=== PATIENT | female | born 1945 | race Caucasian/White ===

== ENCOUNTER 2018-10-20 11:35 | Outpatient (REF) | payer OTHER, SELFPAY ==
[2018-10-20 21:28] LABS: HCT 38.6 % (36.0-46.0); HGB 12.1 g/dL (12.0-15.5); Mean Corp. HGB Concentration 31.3 g/dL (32.0-36.0); Mean Corpuscular Hemoglobin 29.7 pg (27.0-33.0); Mean Corpuscular Volume 94.8 fL (80-95); Mean Platelet Volume 10.1 fL (8.0-11.0); Platelet Count 345 x1000/uL (130-400); RBC 4.07 m/cumm (4.00-5.20); RBC Distribution Width 16.3 % (11.7-14.6); White Blood Cell Count 6.21 k/cumm (4.4-10.8)
[2018-10-20 21:43] LABS: BUN 32 mg/dL (7-18); CREATININE 1.19 mg/dL (0.55-1.02); Chloride 105 mmol/L (98-107); Estimated GFR 44.46 (mL/min/1.73m2); Glucose 112 mg/dL (70-100); Iron 52 ug/dL (50-175); Potassium 4.6 mmol/L (3.5-5.1); Sodium 141 mmol/L (136-145); Total Iron Binding Capacity 293 ug/dL (250-450); Transferrin Sat 18 % (15-50)
== END 2018-10-20 11:55 ==
LOC: NCHCN 11:35
PROVIDERS: PCP Family Medicine; Visit Provider Family Medicine
DX: D50.9 Iron deficiency anemia, unspecified (principal); I10 Essential (primary) hypertension; E66.9 Obesity, unspecified
CPT/HCPCS: 80048; 85027; 83540; 83550

== ENCOUNTER 2019-11-17 12:46 | Outpatient (REF) | payer OTHER, SELFPAY ==
[2019-11-17 21:09] LABS: Anion Gap 8.2 mmol/L (3-11); BUN 25 mg/dL (7-18); CO2 25.8 mmol/L (21.0-32.0); CREATININE 1.18 mg/dL (0.55-1.02); Calcium 9.1 mg/dL (8.5-10.1); Chloride 105 mmol/L (98-107); Estimated GFR 44.77 (mL/min/1.73m2); Glucose 109 mg/dL (74-106); Potassium 4.5 mmol/L (3.5-5.1); Sodium 139 mmol/L (136-145)
[2019-11-17 21:32] LABS: Hemoglobin A1C 6.8 % (3.8-5.6)
== END 2019-11-17 13:06 ==
LOC: NCHCN 12:46
PROVIDERS: PCP Family Medicine; Visit Provider Family Medicine
DX: I10 Essential (primary) hypertension (principal); E11.9 Type 2 diabetes mellitus without complications
CPT/HCPCS: 80048; 83036

== ENCOUNTER 2020-04-16 15:25 | Outpatient (REF) | payer OTHER, SELFPAY ==
[2020-04-16 21:08] LABS: HCT 37.9 % (36.0-46.0); HGB 12.2 g/dL (11.2-15.7); MCH 31.4 pg (27.0-33.0); MCHC 32.2 % (32.0-36.0); MCV 97.4 fL (80-95); Platelet Count 353 10^3/uL (130-400); RBC 3.89 10^6/uL (3.93-5.22); RDW 14.2 % (11.7-14.6); RDW-SD 51.1 fL; WBC 7.69 10^3/uL (4.4-10.8)
[2020-04-16 21:37] LABS: Anion Gap 8.3 mmol/L (3-11); BUN 24 mg/dL (7-18); CO2 27.7 mmol/L (21.0-32.0); CREATININE 0.96 mg/dL (0.55-1.02); Calcium 9.1 mg/dL (8.5-10.1); Chloride 107 mmol/L (98-107); Estimated GFR 56.66 (mL/min/1.73m2); Ferritin 84 ng/mL (8-252); Glucose 117 mg/dL (74-106); Potassium 4.4 mmol/L (3.5-5.1); Sodium 143 mmol/L (136-145)
== END 2020-04-16 15:45 ==
LOC: NCHCN 15:25
PROVIDERS: PCP Family Medicine; Visit Provider Family Medicine
DX: E61.1 Iron deficiency (principal); D64.9 Anemia, unspecified; N18.9 Chronic kidney disease, unspecified
CPT/HCPCS: 80048; 85027; 82728

== ENCOUNTER 2020-10-23 14:25 | Outpatient (REF) | payer OTHER, SELFPAY ==
[2020-10-23 22:36] LABS: BUN 23 mg/dL (7-18); Estimated GFR 54.05 (mL/min/1.73m2)
== END 2020-10-23 14:26 | disposition home or self-care (01) ==
LOC: NCHCN 14:25
PROVIDERS: PCP Family Medicine; Visit Provider Family Medicine
DX: Z01.818 Encounter for other preprocedural examination (principal)
CPT/HCPCS: 84520; 82565

== ENCOUNTER 2021-06-03 16:32 | Outpatient (REF) | payer OTHER, SELFPAY ==
[2021-06-03 22:29] LABS: Calculated LDL 70 mg/dL (<100); Cholesterol 137 mg/dL (<200); HDL Cholesterol 44 mg/dL (40-60); Triglyceride 116 mg/dL (<150)
[2021-06-03 22:32] LABS: Hemoglobin A1C 5.5 % (<5.7)
== END 2021-06-03 16:33 | disposition home or self-care (01) ==
LOC: NCHCN 16:32
PROVIDERS: PCP Family Medicine; Visit Provider Family Medicine
DX: E11.9 Type 2 diabetes mellitus without complications (principal); E78.5 Hyperlipidemia, unspecified
CPT/HCPCS: 80061; 83036

== ENCOUNTER 2021-08-13 14:59 | Outpatient (REF) | payer MEDICARE, SELFPAY ==
--- OUTSIDE RECORDS SUMMARY | 2021-08-13 15:01 | XMS_ITS | CCD ---
:1945 Author Care Team Providers Name Role Phone LAWLER Attending Physician Unavailable Vital Signs Unknown or Not Available. Allergies Allergy Code Allergy Type Reaction Status SULFA (sulfonamide) 0 Drug allergy Nausea; Vomiting Acti ve LEVOFLOXACIN 33645 Drug allergy NAUSEA/VOMITING,REBEKAH Active RRHEA,ABDOMINAL PAIN Procedures Unknown or Not Available. History of Immunizations Unknown or Not Available. Problems Unknown or Not Available. Results COMPREHENSIVE METABOLIC PANEL (CMP) - Co llect Date/Time: 07/02/2021 12:06 Test Name Code Test Result Test Units Test Ref Range GLUCOSE 2345-7 117 mg/dL L=70 H=11 6 BUN 3094-0 23 mg/dL L=6 H=25 CREATININE 2160-0 1.02 mg/dL L=0.51 H=0.95 SODIUM SERUM 2951-2 140 mmol/L L=136 H=14 5 POTASSIUM SERUM 2823-3 5.3 mmol/L L=3.4 H =5.2 CHLORIDE SERUM 2075-0 108 mmol/L L=96 H= 110 CARBON DIOXIDE (CO2) 2028-9 25 mmol/L L=22 H=34 ANION GAP 44824-4 7.1 mmol/L CALCIUM SERUM 85514-0 9.2 mg/dL L=8.2 H=10.2 BILIRUBIN TOTAL 1975-2 0.3 mg/dL L=0.0 H =1.3 ALK. PHOS. 6768-6 66 U/L L=46 H=11 6 SGOT (AST) 1920-8 29 U/L L=15 H=37 SGPT (ALT) 1742-6 34 U/L L=12 H=78 TOTAL PROTEIN 2885-2 7.5 gm/dL L=6.0 H=8 .0 ALBUMIN 1751-7 3.3 gm/dL L=3.4 H=5. 0 AGE 76 years eGFR (non-Afr.Amer.) 71132-5 53 mL/min eGFR (Afr-[place]) 90503-9 64 mL/min HEMOGRAM + PLATELET WO DIFF - Collect Da te/Time: 07/02/2021 12:06 Test Name Code Test Result Test Units Test Ref Range WBC 6690-2 6.60 th/cmm L=5.00 H=10.00 NRBC % 66247-6 0.0 % L=0.0 H=0. 0 NRBC abs count 11914-0 0.0 mil/cmm L=0.0 H= 0.0 RBC 789-8 3.43 mil/cmm L=3.90 H=5.40 HEMOGLOBIN 718-7 10.8 gm/dL L=12.0 H=16.0 HEMATOCRIT 4544-3 34 % L=37 H=47 MCV 787-2 99 fL L=82 H=92 MCH 785-6 31.5 pg L=27.0 H=31.0 MCHC 786-4 31.7 % L=32.0 H=36.0 RDW-SD 788-0 55.6 fL L=39.0 H=49.0 PLATELET COUNT 777-3 393 th/cmm L=150 H= 450 Active Medications Unknown or Not Available. Medications Administered During Visit Unknown or Not Available. Encounters Encounter Diagnosis Diagnosis Code Start Date Myasthenia gravis without (acute) exacerbation G7000 07/02/2021 Social History Smoking Status Code Start Date End Date Never smoker [id number] Patient Decision Aids Unknown or Not Available. Discharge Instructions You were admitted to [facility] on 07/02/2021 11:53 with a principal diagnosis of Myasthenia gravis without ( acute) exacerbation You had the following tests done: COMPREHENSIVE METABOLIC PANEL (CMP) HEMOGRAM + PLATELET WO DI FF You were discharged from [facility] on 07/02/2021 11:53 Should you have any questions prior to d ischarge, please contact a member of your healthcare team. If you have left the ho spital and have any questions, please contact your primary care physician. Chief Complaint and Reason For Visit Unknown or Not Available. Function Status Unknown or Not Available. Plan of Care Unknown or Not Available. Referral/Transition of Care Unknown or Not Available.
--- OUTSIDE RECORDS SUMMARY | 2021-08-13 15:01 | XMS_ITS | CCD ---
:1945 Author Care Team Providers Name Role Phone MD MARQUES Attending Physician Unavailable MD CASIMIRO Er Physician 1 Unavailable Vital Signs Unknown or Not Available. Allergies Allergy Code Allergy Type Reaction Status SULFA (sulfonamide) 0 Drug allergy Nausea; Vomiting Acti ve LEVOFLOXACIN 51907 Drug allergy NAUSEA/VOMITING,REBEKAH Active RRHEA,ABDOMINAL PAIN Procedures Unknown or Not Available. History of Immunizations Unknown or Not Available. Problems Unknown or Not Available. Results BNP (PRO-B NATRIURETIC PEPTIDE) - [facility] t Date/Time: 12/21/2020 16:32 Test Name Code Test Result Test Units Test Ref Range NT-proBNP 45012-7 185.0 pg/mL L=0.0 H=12 5 COMPREHENSIVE METABOLIC PANEL (CMP) - Ok llect Date/Time: 12/21/2020 16:32 Test Name Code Test Result Test Units Test Ref Range GLUCOSE 2345-7 121 mg/dL L=70 H=11 6 BUN 3094-0 17 mg/dL L=6 H=25 CREATININE 2160-0 1.03 mg/dL L=0.51 H=0.95 SODIUM SERUM 2951-2 142 mmol/L L=136 H=14 5 POTASSIUM SERUM 2823-3 3.7 mmol/L L=3.4 H =5.2 CHLORIDE SERUM 2075-0 107 mmol/L L=96 H= 110 CARBON DIOXIDE (CO2) 2028-9 24 mmol/L L=22 H=34 ANION GAP 04239-5 10.9 mmol/L CALCIUM SERUM 45286-4 8.8 mg/dL L=8.2 H=10.2 BILIRUBIN TOTAL 1975-2 0.3 mg/dL L=0.0 H =1.3 ALK. PHOS. 6768-6 65 U/L L=46 H=11 6 SGOT (AST) 1920-8 29 U/L L=15 H=37 SGPT (ALT) 1742-6 41 U/L L=12 H=78 TOTAL PROTEIN 2885-2 6.9 gm/dL L=6.0 H=8 .0 ALBUMIN 1751-7 3.4 gm/dL L=3.4 H=5. 0 AGE 75 years eGFR (non-Afr.Amer.) 80600-3 52 mL/min eGFR (Afr-[place]) 17016-2 63 mL/min GLUCOSE FINGER/HEEL CAPILLARY - Collect Date/Time: 12/22/2020 00:52 Test Name Code Test Result Test Units Test Ref Range GLUCOSE CAP 124 mg/dL L=70 H=11 6 TROPONIN-I ADM. - Collect Date/Time: 06/2021 16:32 Test Name Code Test Result Test Units Test Ref Range TROPONIN-I 04009-2 <0.017 ng/mL L=0.000 H=0. 060 CBC W/ DIFFERENTIAL - Collect Date/Time: 12/21/2020 16:32 Test Name Code Test Result Test Units Test Ref Range WBC 6690-2 9.40 th/cmm L=5.00 H=10.00 NEUT % 63.6 % L=40.0 H=80.0 LYMPH % 26.5 % L=10.0 H=50.0 MONO % 17679-8 5.6 % L=2.0 H=12.0 EOS % 3.3 % L=0.0 H=8. 0 BASO % 0.6 % L=0.0 H=3. 0 IG % 2514-8 0.4 % L=0.0 H=1. 1 NRBC % 14382-6 0.0 % L=0.0 H=0. 0 NEUT abs count 751-8 6.0 th/cmm L=1.6 H= 8.4 LYMPH abs count 731-0 2.5 th/cmm L=1.5 H =4.0 MONO abs count 742-7 0.5 th/cmm L=0.2 H= 1.0 EOS abs count 711-2 0.3 th/cmm L=0.0 H=0 .5 BASO abs count 704-7 0.1 th/cmm L=0.0 H= 0.2 IG abs count 20055-5 0.0 th/cmm L=0.0 H=0. 1 NRBC abs count 99470-7 0.0 mil/cmm L=0.0 H= 0.0 RBC 789-8 3.99 mil/cmm L=3.90 H=5.40 HEMOGLOBIN 718-7 12.6 gm/dL L=12.0 H=16.0 HEMATOCRIT 4544-3 39 % L=37 H=47 MCV 787-2 99 fL L=82 H=92 MCH 785-6 31.6 pg L=27.0 H=31.0 MCHC 786-4 32.0 % L=32.0 H=36.0 RDW-SD 788-0 55.8 fL L=39.0 H=49.0 PLATELET COUNT 777-3 354 th/cmm L=150 H= 450 PT PROTHROMBIN TIME - Collect Date/Time: 12/21/2020 16:32 Test Name Code Test Result Test Units Test Ref Range PROTIME 5902-2 9.6 seconds L=9.3 H=11 .4 INR 19105-8 0.94 L=2.00 H=3. 00 PTT PARTIAL THROMBOPLASTIN TIME - Colle t Date/Time: 12/21/2020 16:32 Test Name Code Test Result Test Units Test Ref Range PTT 11013-2 22 seconds L=24 H=32 Active Medications Unknown or Not Available. Medications Administered During Visit Unknown or Not Available. Encounters Encounter Diagnosis Diagnosis Code Start Date Myasthenia gravis with (acute) exacerbation G7001 12/21/2020 Social History Smoking Status Code Start Date End Date Never smoker [id number] Patient Decision Aids Unknown or Not Available. Discharge Instructions You were admitted to [facility] on 12/21/2020 18:19 with a principal diagnosis of Myasthenia gravis with (acu te) exacerbation You had the following tests done: GLUCOSE FINGER/HEEL CAPILLARY BNP (PRO-B NATRIURETIC PEPTIDE) CBC W/ DIFFERENTIAL COMPREHENSIVE METABOLIC PANEL (CMP) PT PROTHROMBIN TIME PTT PARTIAL THROMBOPLASTIN TIME TROPONIN-I ADM. You were discharged from [facility] on 12/22/2020 01:59 Should you have any questions prior to d ischarge, please contact a member of your healthcare team. If you have left the ho spital and have any questions, please contact your primary care physician. Chief Complaint and Reason For Visit Chief Complaint Date of Onset SOB Function Status Unknown or Not Available. Plan of Care Unknown or Not Available. Referral/Transition of Care Unknown or Not Available.
--- OUTSIDE RECORDS SUMMARY | 2021-08-13 15:01 | XMS_ITS | CCD ---
:1945 Author Care Team Providers Name Role Phone LAWLER Attending Physician Unavailable Vital Signs Unknown or Not Available. Allergies Allergy Code Allergy Type Reaction Status SULFA (sulfonamide) 0 Drug allergy Nausea; Vomiting Acti ve LEVOFLOXACIN 75117 Drug allergy NAUSEA/VOMITING,REBEKAH Active RRHEA,ABDOMINAL PAIN Procedures Unknown or Not Available. History of Immunizations Unknown or Not Available. Problems Unknown or Not Available. Results COMPREHENSIVE METABOLIC PANEL (CMP) - Co llect Date/Time: 07/31/2021 12:30 Test Name Code Test Result Test Units Test Ref Range GLUCOSE 2345-7 119 mg/dL L=70 H=11 6 BUN 3094-0 30 mg/dL L=6 H=25 CREATININE 2160-0 1.04 mg/dL L=0.51 H=0.95 SODIUM SERUM 2951-2 140 mmol/L L=136 H=14 5 POTASSIUM SERUM 2823-3 5.5 mmol/L L=3.4 H =5.2 CHLORIDE SERUM 2075-0 108 mmol/L L=96 H= 110 CARBON DIOXIDE (CO2) 2028-9 24 mmol/L L=22 H=34 ANION GAP 57940-8 8.0 mmol/L CALCIUM SERUM 36443-9 9.3 mg/dL L=8.2 H=10.2 BILIRUBIN TOTAL 1975-2 0.3 mg/dL L=0.0 H =1.3 ALK. PHOS. 6768-6 74 U/L L=46 H=11 6 SGOT (AST) 1920-8 26 U/L L=15 H=37 SGPT (ALT) 1742-6 37 U/L L=12 H=78 TOTAL PROTEIN 2885-2 8.0 gm/dL L=6.0 H=8 .0 ALBUMIN 1751-7 3.5 gm/dL L=3.4 H=5. 0 AGE 76 years eGFR (non-Afr.Amer.) 70613-9 52 mL/min eGFR (Afr-Citizen Of [place]) 40452-9 62 mL/min CBC W/ DIFFERENTIAL* - Collect Date/Time : 07/31/2021 12:30 Test Name Code Test Result Test Units Test Ref Range WBC 6690-2 6.44 th/cmm L=5.00 H=10.00 NEUT % 68.4 % L=40.0 H=80.0 LYMPH % 24.2 % L=10.0 H=50.0 MONO % 80663-2 5.4 % L=2.0 H=12.0 EOS % 1.1 % L=0.0 H=8. 0 BASO % 0.6 % L=0.0 H=3. 0 IG % 2514-8 0.3 % L=0.0 H=1. 1 NRBC % 72914-0 0.0 % L=0.0 H=0. 0 NEUT abs count 751-8 4.4 th/cmm L=1.6 H= 8.4 LYMPH abs count 731-0 1.6 th/cmm L=1.5 H =4.0 MONO abs count 742-7 0.4 th/cmm L=0.2 H= 1.0 EOS abs count 711-2 0.1 th/cmm L=0.0 H=0 .5 BASO abs count 704-7 0.0 th/cmm L=0.0 H= 0.2 IG abs count 75626-4 0.0 th/cmm L=0.0 H=0. 1 NRBC abs count 48743-7 0.0 mil/cmm L=0.0 H= 0.0 RBC 789-8 3.54 mil/cmm L=3.90 H=5.40 HEMOGLOBIN 718-7 10.9 gm/dL L=12.0 H=16.0 HEMATOCRIT 4544-3 35 % L=37 H=47 MCV 787-2 99 fL L=82 H=92 MCH 785-6 30.8 pg L=27.0 H=31.0 MCHC 786-4 31.1 % L=32.0 H=36.0 RDW-SD 788-0 55.4 fL L=39.0 H=49.0 PLATELET COUNT 777-3 418 th/cmm L=150 H= 450 Active Medications Unknown or Not Available. Medications Administered During Visit Unknown or Not Available. Encounters Encounter Diagnosis Diagnosis Code Start Date Myasthenia gravis without (acute) exacerbation G7000 07/31/2021 Social History Smoking Status Code Start Date End Date Never smoker [id number] Patient Decision Aids Unknown or Not Available. Discharge Instructions You were admitted to [facility] on 07/31/2021 11:37 with a principal diagnosis of Myasthenia gravis without ( acute) exacerbation You had the following tests done: CBC W/ DIFFERENTIAL* COMPREHENSIVE METABOLIC PANEL (CMP) You were discharged from [facility] on 07/31/2021 11:37 Should you have any questions prior to [...]
== END 2021-08-13 15:00 | disposition home or self-care (01) ==
LOC: NCHCN 14:59
PROVIDERS: PCP Family Medicine; Visit Provider Registered Nurse
DX: R10.2 Pelvic and perineal pain (principal)
CPT/HCPCS: 87480; 87510; 87660

== ENCOUNTER 2021-11-18 22:52 | Outpatient (REF) | payer MEDICARE, SELFPAY ==
[2021-11-18 21:41] LABS: COMMENT (LAB VIEW ONLY) 94.52 mg/dL; Microalb ug/mg Crea 7.9 ug/mg Cr
== END 2021-11-18 22:53 | disposition home or self-care (01) ==
LOC: NCHCN 22:52
PROVIDERS: PCP Family Medicine; Visit Provider Family Medicine
DX: E11.9 Type 2 diabetes mellitus without complications (principal)
CPT/HCPCS: 82043; 82570

== ENCOUNTER 2022-11-17 17:47 | Outpatient (REF) | payer MEDICARE, SELFPAY ==
[2022-11-17 14:40] LABS: HCT 29.8 % (36.0-46.0); HGB 9.1 g/dL (11.2-15.7); MCH 28.7 pg (27.0-33.0); MCHC 30.5 % (32.0-36.0); MCV 94 fL (80-95); MPV 9.7 fL (8.0-11.0); Platelet Count 338 10^3/uL (130-400); RBC 3.17 10^6/uL (3.93-5.22); RDW 16.4 % (11.7-14.6); RDW-SD 57.1 fL; WBC 5.17 10^3/uL (4.4-10.8)
[2022-11-17 15:08] LABS: Anion Gap 5.2 mmol/L (3-11); BUN 23 mg/dL (7-18); CO2 24.8 mmol/L (21.0-32.0); CREATININE 1.2 mg/dL (0.55-1.02); Calcium 8.8 mg/dL (8.5-10.1); Calculated LDL 65 mg/dL (<100); Chloride 110 mmol/L (98-107); Cholesterol 141 mg/dL (<200); Estimated GFR 46.62 (mL/min/1.73m2); Glucose 121 mg/dL (74-106); HDL Cholesterol 44 mg/dL (40-60); Potassium 4.4 mmol/L (3.5-5.1); Sodium 140 mmol/L (136-145); Triglyceride 162 mg/dL (<150)
[2022-11-17 15:15] LABS: COMMENT (LAB VIEW ONLY) 139.49 mg/dL; Microalb ug/mg Crea 4.9 ug/mg Cr
== END 2022-11-17 17:48 | disposition home or self-care (01) ==
LOC: NCHCN 17:47
PROVIDERS: PCP Family Medicine; Visit Provider Family Medicine
DX: D64.9 Anemia, unspecified (principal); N18.30 Chronic kidney disease, stage 3 unspecified; E11.9 Type 2 diabetes mellitus without complications; E78.5 Hyperlipidemia, unspecified; I10 Essential (primary) hypertension
CPT/HCPCS: 80048; 80061; 85027; 82043; 82570

== ENCOUNTER 2023-03-04 13:49 | Outpatient (REF) | payer MEDICARE, SELFPAY ==
[2023-03-04 17:00] LABS: Abs Immature Grans 0.01 10^3/uL (0.0-0.06); Absolute Basophil Count 0.02 10^3/uL (0.0-0.2); Absolute Eosinophil Count 0.02 10^3/uL (0.0-0.7); Absolute Lymphocyte Count 0.63 10^3/uL (1.2-3.4); Absolute Monocyte Count 0.33 10^3/uL (0.1-0.8); Absolute Neutrophil Count 2.61 10^3/uL (1.2-6.7); Basophils % 0.6; Eosinophils % 0.6; HCT 28.2 % (36.0-46.0); HGB 8.4 g/dL (11.2-15.7); Immature Grans % 0.3; Lymphocytes % 17.4; MCH 29.1 pg (27.0-33.0); MCHC 29.8 % (32.0-36.0); MCV 98 fL (80-95); MPV 9.7 fL (8.0-11.0); Monocytes % 9.1; Platelet Count 350 10^3/uL (130-400); RBC 2.89 10^6/uL (3.93-5.22); RDW 15.9 % (11.7-14.6); RDW-SD 57.6 fL; WBC 3.62 10^3/uL (4.4-10.8)
[2023-03-04 17:52] LABS: ALT 24 U/L (14-59); AST 27 U/L (15-37); Alkaline Phosphatase 65 U/L (46-116); Anion Gap 7.8 mmol/L (3-11); BUN 23 mg/dL (7-18); Bilirubin, Total 0.2 mg/dL (0.2-1.0); CO2 23.2 mmol/L (21.0-32.0); Chloride 107 mmol/L (98-107); Estimated GFR 57.66 (mL/min/1.73m2); Glucose 121 mg/dL (74-106); Potassium 5.1 mmol/L (3.5-5.1); Sodium 138 mmol/L (136-145); Total Protein 8.6 g/dL (6.4-8.2)
[2023-03-05 10:17] LABS: Vitamin B12 341 pg/mL (193-986)
== END 2023-03-04 13:50 | disposition home or self-care (01) ==
LOC: NCHCN 13:49
PROVIDERS: PCP Family Medicine; Visit Provider Family Medicine
DX: D64.9 Anemia, unspecified (principal); G70.00 Myasthenia gravis without (acute) exacerbation; M13.80 Other specified arthritis, unspecified site; Z86.39 Personal history of other endocrine, nutritional and metabolic disease
CPT/HCPCS: 80053; 82607; 85025

== ENCOUNTER 2023-03-12 18:27 | Outpatient (REF) | payer MEDICARE, SELFPAY ==
[2023-03-12 21:51] LABS: Iron 67 ug/dL (50-170); Total Iron Binding Capacity 335 ug/dL (250-450); Transferrin Sat 20 % (15-50)
== END 2023-03-12 18:28 | disposition home or self-care (01) ==
LOC: NCHCN 18:27
PROVIDERS: PCP Family Medicine; Visit Provider Family Medicine
DX: D53.9 Nutritional anemia, unspecified (principal); K92.2 Gastrointestinal hemorrhage, unspecified
CPT/HCPCS: 83540; 83550

== ENCOUNTER 2023-04-05 11:57 | Outpatient (REF) | payer MEDICARE, SELFPAY ==
[2023-04-05 16:13] LABS: Iron 62 ug/dL (50-170); Total Iron Binding Capacity 313 ug/dL (250-450); Transferrin Sat 20 % (15-50)
== END 2023-04-05 11:58 | disposition home or self-care (01) ==
LOC: NCHCN 11:57
PROVIDERS: PCP Family Medicine; Visit Provider Family Medicine
DX: K92.2 Gastrointestinal hemorrhage, unspecified (principal)
CPT/HCPCS: 83540; 83550

== ENCOUNTER 2023-04-14 22:33 | Outpatient (REF) | payer MEDICARE, SELFPAY ==
--- OUTSIDE RECORDS SUMMARY | 2023-04-14 22:36 | XMS_ITS | CCD ---
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 BMI (Body Mass Index) 31 kg/m^2 12/07/2021 12: 25 Initial VS Weight Measured 175 lbs 12/07/2021 12:25 Ini tial VS Height 63 in 12/07/2021 12:25 Initial VS BSA (Body Surface Area) 1.88 m^2 12/07/2021 1 2:25 Initial VS BP Systolic 128 mmHg 12/07/2021 12:25 Initial VS BP Diastolic 68 mmHg 12/07/2021 12:25 Initia l VS Respiratory Rate 18 bpm 12/07/2021 12:25 In itial VS Heart Rate 68 bpm 12/07/2021 12:25 Initial VS O2 % BldC Oximetry 96 % 12/07/2021 12:25 Initial VS Body Temperature 36.2 degrees 12/07/2021 12:25 In itial VS BP Systolic 150 mmHg 12/08/2021 20:30 Most Re cent VS BP Diastolic 70 mmHg 12/08/2021 20:30 Most R ecent VS Respiratory Rate 16 bpm 12/08/2021 20:[address] Recent VS Heart Rate 62 bpm 12/08/2021 20:30 Most Rec ent VS O2 % BldC Oximetry 94 % 12/08/2021 20:30 Most Recent VS Body Temperature 36.4 degrees 12/08/2021 20:[address] Recent VS Allergies Allergy Code Allergy Type Reaction Status SULFA (sulfonamide) 0 Drug allergy Nausea; Vomiti ng Active LEVOFLOXACIN 28930 Drug allergy NAUSEA/VOMITING,DIARR HEA,ABDOMINAL PAIN Active Procedures Unknown or Not Available. History of Immunizations Unknown or Not Available. Problems Problem Code Start Date Resolved Date Status Myasthenia gravis with (acut e) exacerbation [id number] Active Nausea with vomiting 14376850 Acti ve Weakness 30209564 Active Type 2 diabetes 57705192 Active Hypertension 19170454 Active Personal history of [place] 379467796 12/07/2021 Re solved Diabetes 63047940 12/07/2021 Resolved Hypertension 01121070 12/07/2021 Resolved Myasthenia gravis 00500411 12/07/2021 Resolve d Results BASIC METABOLIC PANEL (BMP) - Collect Date/Time: 12/08/2021 06:55 Test Name Code Test Result Test Units Test Ref Rang e GLUCOSE 2345-7 107 mg/dL L=70 H=116 BUN 3094-0 27 mg/dL L=6 H=25 CREATININE 2160-0 0.96 mg/dL L=0.51 H=0.95 SODIUM SERUM 2951-2 136 mmol/L L=136 H=145 POTASSIUM SERUM 2823-3 4.5 mmol/L L=3.4 H=5 .2 CHLORIDE SERUM 2075-0 104 mmol/L L=96 H=110 CARBON DIOXIDE (CO2) 2028-9 23 mmol/L L=22 H=34 ANION GAP 99307-7 8.6 mmol/L CALCIUM SERUM 96577-0 8.8 mg/dL L=8.2 H=10. 2 AGE 76 years eGFR (non-Afr.Amer.) 48818-4 57 mL/min eGFR (Afr-[place]) 92195-3 68 mL/min COMPREHENSIVE METABOLIC PANE L (CMP) - Collect Date/Time: 12/07/2021 13:00 Test Name Code Test Result Test Units Test Ref Rang e GLUCOSE 2345-7 123 mg/dL L=70 H=116 BUN 3094-0 23 mg/dL L=6 H=25 CREATININE 2160-0 0.97 mg/dL L=0.51 H=0.95 SODIUM SERUM 2951-2 136 mmol/L L=136 H=145 POTASSIUM SERUM 2823-3 4.3 mmol/L L=3.4 H=5 .2 CHLORIDE SERUM 2075-0 104 mmol/L L=96 H=110 CARBON DIOXIDE (CO2) 2028-9 23 mmol/L L=22 H=34 ANION GAP 01899-9 9.5 mmol/L CALCIUM SERUM 46902-0 8.9 mg/dL L=8.2 H=10. 2 BILIRUBIN TOTAL 1975-2 0.3 mg/dL L=0.0 H=1 .3 ALK. PHOS. 6768-6 67 U/L L=46 H=116 SGOT (AST) 1920-8 24 U/L L=15 H=37 SGPT (ALT) 1742-6 32 U/L L=12 H=78 TOTAL PROTEIN 2885-2 7.1 gm/dL L=6.0 H=8.0 ALBUMIN 1751-7 3.2 gm/dL L=3.4 H=5.0 AGE 76 years eGFR (non-Afr.Amer.) 54652-5 56 mL/min eGFR (Afr-[place]) 15348-2 68 mL/min GLUCOSE FINGER/HEEL CAPILLAR Y - Collect Date/Time: 12/08/2021 17:17 Test Name Code Test Result Test Units Test Ref Rang e GLUCOSE CAP 125 mg/dL L=70 H=116 GLUCOSE FINGER/HEEL CAPILLAR Y - Collect Date/Time: 12/08/2021 11:53 Test Name Code Test Result Test Units Test Ref Rang e GLUCOSE CAP 108 mg/dL L=70 H=116 GLUCOSE FINGER/HEEL CAPILLAR Y - Collect Date/Time: 12/08/2021 08:08 Test Name Code Test Result Test Units Test Ref Rang e GLUCOSE CAP 141 mg/dL L=70 H=116 TROPONIN HIGH SENSITIVITY* - Collect Date/Time: 12/07/2021 13:00 Test Name Code Test Result Test Units Test Ref Rang e TROPONIN HS 32.9 pg/mL L=0.0 H=60.4 Specimen seq. Random N/A TSH THYROID STIMULATING HORM ONE* - Collect Date/Time: 12/07/2021 13:00 Test Name Code Test Result Test Units Test Ref Rang e TSH 3014-8 0.960 uIU/mL L=0.360 H=3.74 0 CBC W/ DIFFERENTIAL* - Colle ct Date/Time: 12/08/2021 06:55 Test Name Code Test Result Test Units Test Ref Rang e WBC 6690-2 4.12 th/cmm L=5.00 H=10.00 NEUT % 66.8 % L=40.0 H=80.0 LYMPH % 24.5 % L=10.0 H=50.0 MONO % 03706-5 6.8 % L=2.0 H=12.0 EOS % 1.0 % L=0.0 H=8.0 BASO % 0.7 % L=0.0 H=3.0 IG % 2514-8 0.2 % L=0.0 H=1.1 NRBC % 18069-0 0.0 % L=0.0 H=0.0 NEUT abs count 751-8 2.8 th/cmm L=1.6 H=8. 4 LYMPH abs count 731-0 1.0 th/cmm L=1.5 H=4 .0 MONO abs count 742-7 0.3 th/cmm L=0.2 H=1. 0 EOS abs count 711-2 0.0 th/cmm L=0.0 H=0.5 BASO abs count 704-7 0.0 th/cmm L=0.0 H=0. 2 IG abs count 80614-6 0.0 th/cmm L=0.0 H=0.1 NRBC abs count 59908-4 0.0 mil/cmm L=0.0 H=0. 0 RBC 789-8 2.96 mil/cmm L=3.90 H=5.40 HEMOGLOBIN 718-7 9.1 gm/dL L=12.0 H=16.0 HEMATOCRIT 4544-3 29 % L=37 H=47 MCV 787-2 99 fL L=82 H=92 MCH 785-6 30.7 pg L=27.0 H=31.0 MCHC 786-4 31.0 % L=32.0 H=36.0 RDW-SD 788-0 50.4 fL L=39.0 H=49.0 PLATELET COUNT 777-3 332 th/cmm L=150 H=45 0 Atyp lymphs 1+ N/A Schistocytes 1+ N/A Macrocytes 1+ N/A CBC W/ DIFFERENTIAL* - Colle ct Date/Time: 12/07/2021 13:00 Test Name Code Test Result Test Units Test Ref Rang e WBC 6690-2 7.36 th/cmm L=5.00 H=10.00 NEUT % 86.8 % L=40.0 H=80.0 LYMPH % 9.8 % L=10.0 H=50.0 MONO % 21660-0 2.7 % L=2.0 H=12.0 EOS % 0.0 % L=0.0 H=8.0 BASO % 0.3 % L=0.0 H=3.0 IG % 2514-8 0.4 % L=0.0 H=1.1 NRBC % 16805-3 0.0 % L=0.0 H=0.0 NEUT abs count 751-8 6.4 th/cmm L=1.6 H=8. 4 LYMPH abs count 731-0 0.7 th/cmm L=1.5 H=4 .0 MONO abs count 742-7 0.2 th/cmm L=0.2 H=1. 0 EOS abs count 711-2 0.0 th/cmm L=0.0 H=0.5 BASO abs count 704-7 0.0 th/cmm L=0.0 H=0. 2 IG abs count 75275-5 0.0 th/cmm L=0.0 H=0.1 NRBC abs count 27544-3 0.0 mil/cmm L=0.0 H=0. 0 RBC 789-8 3.19 mil/cmm L=3.90 H=5.40 HEMOGLOBIN 718-7 9.8 gm/dL L=12.0 H=16.0 HEMATOCRIT 4544-3 32 % L=37 H=47 MCV 787-2 99 fL L=82 H=92 MCH 785-6 30.7 pg L=27.0 H=31.0 MCHC 786-4 31.1 % L=32.0 H=36.0 RDW-SD 788-0 50.7 fL L=39.0 H=49.0 PLATELET COUNT 777-3 365 th/cmm L=150 H=45 0 SPENSER COVID GENEXPERT* - Co llect Date/Time: 12/07/2021 15:32 Test Name Code Test Result Test Units Test Ref Zeenat dunham COVID 52886-7 NEGATIVE N/A Normal: Negati ve [facility]- 39922-7 INPATIENT/ED N/A Active Medications Medications Administered During Visit Medication Dose Units Frequency Route Date/Time of Last Dose ONDANSETRON INJ SDV: 4MG/2ML 4 MG X1 I WOOD TILE INSTALLER 12/07/2021 15:19 SODIUM CHLORIDE 0.9% FLUSH 10ML SYRINGE 2 ML Q8H IVP 12/08/2021 15:5 8 CALCIUM CARBONATE TAB CHEWABLE UD: 500MG 1000 MG PRN Q2H CHEW 15:58 ATORVASTATIN TABLET: 40MG 40 MG BEDTIME PO 12/07/2021 21:16 LISINOPRIL TABLET: 20MG 20 MG BEDTIME PO 12/07/2021 21:17 PANTOPRAZOLE TABLET: 40MG 40 MG Q7AM PO 12/08/2021 07:42 APIXABAN TAB: 2.5MG 2.5 MG BID PO 12/08/2021 17:15 DiphenhydrAMINE CAP: 25MG 50 MG X1 PO 12/07/2021 20:05 ACETAMINOPHEN TABLET: 325MG 650 MG X1 PO 12/07/2021 20:05 MetFORMIN TABLET: 500MG 500 MG DAILY WITH FOOD PO 12/08/2021 07:43 IMMUNE GLOBULIN (PRIVIGEN) INJ SDV 10GM 10 GM X1 12/07/2021 20:0 6 IMMUNE GLOBULIN (PRIVIGEN) INJ SDV 20GM 20 GM X1 12/07/2021 20:4 9 NF-Mycophenolate Mofetil Ora l Tablet 500 2 TAB BID PO 12/08/2021 05:0 4 NF-Pyridostigmine [place] Oral Tablet 60 2 TAB TID PO 12/07/2021 21 :16 NF-Mycophenolate Mofetil Ora l Tablet 500 1000 MG BID PO 12/08/2021 16:0 1 NF-Pyridostigmine [place] Oral Tablet 60 120 MG TID PO 12/08/2021 17 :18 ACETAMINOPHEN TABLET: 325MG 650 MG X1 PO 12/08/2021 15:58 DiphenhydrAMINE CAP: 25MG 50 MG X1 PO 12/08/2021 15:58 IMMUNE GLOBULIN (PRIVIGEN) INJ SDV 20GM 20 GM X1 12/08/2021 17:0 5 IMMUNE GLOBULIN (PRIVIGEN) INJ SDV 20GM 10 GM X1 12/08/2021 19:2 0 HEPARIN FLUSH SYR 5ML (60CT) 10UNITS/ML 5 ML X1 IVP 12/08/2021 20:1 7 Encounters Encounter Diagnosis Diagnosis Code Start Date Myasthenia gravis with (acute) exacerbation G700 1 12/07/2021 Social History Smoking Status Code Start Date End Date Never smoker [id number] Patient Decision Aids Unknown or Not Available. Discharge Instructions You were admitted to [facility] on 12/07/2021 15:58 with a principal diagnosis of Myasthenia gravis with (acute) exacerbation You had the following tests done:GLUCOSE FINGER/HEEL CAPILLARYGLUCOSE FINGER/HEEL CAPILLARYGLUCOSE FINGER/HEEL CAPILLARYBASIC METABOLIC PANEL (BMP)CBC W/ DIFFERENTIAL*SPENSER COVID GENEXPERT*CBC W/ DIFFERENTIAL*COMPREHENSIVE METABOLIC PANEL (CMP)TROPONIN HIGH SENSITIVITY*TSH THYROID STIMULATING HORMONE* You were discharged from [facility] on 12/08/2021 20:35 Should you have any questions prior to discharge, please contact a member of your healthcare team. If you have left the hospital and have any questions, please contact your primary care physician. Chief Complaint and Reason For Visit Chief Complaint Date of Onset MYASTHENIA GRAVIS EXACERBATION 2 Function Status Unknown or Not Available. Plan of Care Unknown or Not Available. Referral/Transition of Care Unknown or Not Available.
--- OUTSIDE RECORDS SUMMARY | 2023-04-14 22:36 | XMS_ITS | Continuity of Care Document ---
Author Name Unknown Organization [facility] Address [address] [place] [address] Care Team Providers Care Rack Maker Name Role Phone Narinder [facility] Care Physici an Encounter [facility] [id number] Date(s): 03/16/23 - 03/16/23 [facility] [address] [place] [address] Encounter Diagnosis TOSHIA (obstructive sleep apnea)(Discharge Diagnosis) - 03/16/23 Hypoxemia associated with sleep(Discharge Diagnosis) - 03/16/23 Discharge Disposition: Home or Self Care Attending Physician: Margarette Agustin MD Allergies, Adverse Reactions, Alerts Substance Reaction Severity Status azithromycin Unknown Active levoFLOXacin Unknown Active Assessment and Plan Future Appointments Medications calcium carbonate 600 mg oral tablet, chewable 0 Refill(s) Start Date: 03/12/23 Status: Ordered Dulcolax Stool Softener 0 Refill(s) Start Date: 03/12/23 Status: Ordered Eliquis 2.5 mg oral tablet 2.5 mg = 1 tab, Oral, BID, # 60 tab, 0 Refill(s) Start Date: 03/12/23 Status: Ordered Fish Oil oral capsule 1 cap, Oral, Daily, # 100 cap, 0 Refill(s) Start Date: 03/12/23 Status: Ordered ibuprofen 200 mg oral capsule 400 mg = 2 cap, Oral, every 4 hr, PRN as needed for pain, # 120 cap, 0 Refill(s) Start Date: 03/12/23 Status: Ordered Lipitor 40 mg oral tablet 40 mg = 1 tab, Oral, Daily, # 30 tab, 0 Refill(s) Start Date: 03/12/23 Status: Ordered lisinopril 20 mg oral tablet 20 mg = 1 tab, Oral, Daily, # 30 tab, 0 Refill(s) Start Date: 03/12/23 Status: Ordered mycophenolate mofetil 500 mg oral tablet 1,000 mg = 2 tab, Oral, BID, # 120 tab, 0 Refill(s) Start Date: 03/12/23 Status: Ordered omeprazole 20 mg oral delayed release capsule 20 mg = 1 cap, Oral, Daily, # 30 cap, 0 Refill(s) Start Date: 03/12/23 Status: Ordered pyridostigmine 60 mg oral tablet 0 Refill(s) Start Date: 03/12/23 Status: Ordered Voltaren Arthritis Pain 1% topical gel 0 Refill(s) Start Date: 03/12/23 Status: Ordered Problem List Condition Confirmation Course Effective Dates Status Health Status Informant Chronic pulmonary embolism Confirmed Active Deep venous thrombosis Confirmed Active Family history of hypercoagulability Confirmed Active Hypertensive disorder Confirmed Active TOSHIA (obstructive sleep apnea) Confirmed Active PHT (pulmonary hypertension) Confirmed Active Hypoxemia associated with sleep Confirmed Active Vital Signs Most recent to oldest [Reference Range]: 1 Peripheral Pulse Rate [60-100 bpm] 63 bp m (03/16/23 9:58 AM) Blood Pressure [90-140/60-90 mmHg] 132/5 9mmHg (03/16/23 9:58 AM) Weight 81.65 kg (03/16/23 9:58 AM) Weight Measured (lbs) 180.007 lb (03/16/23 9:58 AM) Height 157 cm (03/16/23 9:58 AM) Height/Length Measured (inches) 61.81 in ch (03/16/23 9:58 AM) BSA Measured 1.89 m2 (03/16/23 9:58 AM) Body Mass Index 33.13 kg/m2 (03/16/23 9:58 AM) Social History Social History Type Response Tobacco Never tobacco user T obacco Use:. Sex Female Polysomnography (sleep) study * Alex Mario: PERFORM Event Display: Sleep Study Authored Date: * Alex Mario: PERFORM Event Display: Sleep Study Authored Date: Progress note * Alex Mario: PERFORM Event Display: Progress Note - Physician Authored Date: Physician Outpatient Note * Agustin, Weili G MD: PERFORM, MODIFY Event Display: Office Clinic Note Physician Authored Date: [id number] KATHLEEN TELLEZ :1945 Age:78 years Sex:Female Visit Date:03/16/2023 Primary Care Physician: Narinder LAMB, Thelma Owen MD Chief Complaint cpap follow up History of Present Illness Patient shares a new diagnosis of myasthenia gravis. She thought she had a stroke because of voice and speech changes, had trouble eating/drinking/swallowing. Sees neurologist Dr. Ponce Cleary in [place]. She gets IV infusions every few weeks for a few hours. ?? She registered her old recalled machine and has received a [employer]station 2 that is working well. ?? She has some nights she can't tolerate her CPAP and feels like she is suffocating. She feels it is maybe due to related her MG, not really the CPAP. Can't lay in supine position anymore because of it, she sleeps on stomach at home now. ?? Sometimes gets anxiety attacks because of her MG because of breathing, voice changes. She has trouble with certain tests because of her anxiety. Review of Systems A 10-point REVIEW OF SYSTEM was obtained and reviewed, includes CONSTITUTIONAL, EYES, NOSE, THROAT,RESPIRATORY, HEART, GASTROINTESTINAL, UROLOGIC, MUSCULOSKELETAL, PSYCHIATRY, SKIN systems. Pertinent symptoms are discussed in history, otherwise negative. Physical Exam Vitals & Measurements HR:??63??(Peripheral)?? BP:??132/59?? SpO2:??97%?? HT:??157??cm?? WT:??81.65??kg?? BMI:??33.13?? BSA:??1.89?? General:??well appearing, appearing stated age, no acute distress,??obese??build HEENT: atraumatic skull, anicteric RESPIRATORY: quiet respiration, able to speak in full sentences without dyspnea, no accessory muscle use SKIN: no facial skin rash, no facial skin lesions PSYCHIATRIC: well groomed, fluent speech, good insight, linear thought process, good eye contact,balanced??affect NEUROLOGIC: alert, oriented, symmetric facial expression Clinic Assessment/Plan 1.??TOSHIA (obstructive sleep apnea)??G47.33 2.??Hypoxemia associated with sleep??G47.36 I provided greater than??40??minutes in the care of this patient including chart review and documentation, more than half the time was spent in [id number] counseling. ?? KATHLEEN TELLEZ??is a pleasant??78 Years??year old??Female, occupation:??retired Presents for??sleep follow-up. ?? Comorbidities??include: ?HTN, DM, hyperlipidemia, Pulmonary hypertension, DVT, PE and Mild Obstructive Sleep Apnea? Clinical Data Reviewed:? [place] Sleepiness Scale:?? 09/04??(03/16/2023) ?? Machine Download Data:??[employer] Dreamstation 2 Auto CPAP?? PAP Settings: ??Auto CPAP?? 8 to 16?? CmH2O Date Range: ?02/05/23 - 03/06/23 Days with Usage >=4 hours: ??70% Avg Usage per Day Used: ??5hr 40min Mean/Median Pressure: ?8.4 90th-tile/95th-tile Pressure: ??9.2?? Median-90th%tile Leak?0s Avg Treatment ??AHI: ??3.1/hr ?? Other relevant studies: (pulm htn clinic notes were requested and reviewed, including most recent one on 01/05/18) admitted Jul 2016 w/ extensive pulmonary embolism, CT suggestive of RHS. ?? Last CT chest report 02/17/17 significant decrease in PE burden compared with CT scan 07/2016. Chronic pulmonary emboli now present throughout all lobes with the exception of RUL. PAH and right heart enlargement. ?? Last ECHO 01/19/17: LV size nml, EF 60-65%, wall motion normal. Ventricular septum mild diastolic flattening. RV moderately dilated. Systolic function moderately reduced. PA pressure not reported. ?? RHC 03/22/17 PA pressure 63/28. ?? fluoro sniff given RHD elevation 08/04/17: RHD elevated, less excursion than left, but synchronous movement, no evidence of HD paralysis ?? 12/13/17 [facility] echo: grd 1 diastolic dysfunction, normal LA diameter, RV size and function remain normal, PASP estimated 35 to 40 to be mildly elevated. IVC normal w/ normal RPV. ?? Sleep Clinical Timeline:? Diagnostic Polysomnogram on 08/01/17 AHI 8.1/hr RDI 12.4/hr REM AHI 24/hr REM RDI 28.6/hr Supine AHI 16/hr Lee SpO2 80% 120 Minutes with SpO2 less than 88% (worse in supine, analia severe in supine REM), Arousal index 12/hr PLM index 1.1/hr PLM Arousal index 0.2/hr. NSR with PACs. ?? Jul 2017 - started auto cpap 6 to 16 + 2 LPM O2 09/28/17 - auto cpap 6 to 13 cm + 2 LPM O2 per Titration Polysomnogram results; ?? Titration Polysomnogram on 09/12/17 (wt 208 lbs / bmi 39) tested cpap 5 to 11cm. Optimal pressure notfound due to absent supine REM sleep. best pressure was cpap 11cm, which resolved significant apneas, hypopneas and snoring including during L Lateral REM sleep but O2 lingered 87 to 89% on room air on all settings. Eventually supplemental O2 at 1 LPM added during NREM sleep but this failed to corrected the hypoxemia. CPAP 5cm worked for L NREM sleep. 9cm worked for Prone NREM sleep. AirFit P10 nasal pillows had high leak even with chin strap. Pao view full face mask in small had good leak profile. ?? 12/16/17 Overnight Oximetry on Auto CPAP 6 to 13cm and 2 LPM O2 suggests residual nocturnal hypoxemia, with 1h39m at SpO2 <= 88% and JOSE 4.7/hr, latter is consistent with cpap data and suggests respiratory events are fairly well controlled but hypoxemia persists. ? 12/30/17- inc auto cpap 8 to 16cm + 4 LPM O2, as titration results did not find optimal pressure forREM, so will increase empirically to try to dec AHI further. inc to 4LPM O2 due to abn overnight oxresults showing 1.5+ hrs <= 88% on 2 LPM O2 and cpap. ?? 01/28/18 Overnight Oximetry on Auto CPAP 8 to 16cm and 4 LPM O2 showed avg O2 93% lee O2 89% High O2 98% 0 min O2<=88% JOSE 2.7/hr. ?? 02/24/18 - continue auto cpap 8 to 16cm which shows tx AHI reduced to 3.7/hr and she has good benefit on this, dec to 3.5 LPM O2 as overnight oximetry on 4LPM showed much higher O2 levels, confirmed with Dr Calixto/pulm htn clinic that target O2 would be > 90%.. will repeat test before next follow up, sooner if needed. given she is very overwhelmed with caring for her , we can do yearly follow up, but she knows to contact me sooner if there are changes to symptoms or her other medical conditions ?? 01/18/19 Overnight Oximetry on auto cpap 8 to 16cm and 3.5 LPM O2 showed SpO2 <= 88% for 1h30m, avg O2 90% lee O2 82% highest O2 97% ? 02/06/19: overnight oximetry on apap 8 to 16cm and 3.5 LPM O2 showed SpO2 <= 88% for 1h30m, will continue apap 8 to 16cm but increase to 4.5 LPM O2. ?? 05/01/20: overnight oximetry ordered and pt recalls completing it and returning it but [facility] has no record of this. 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 she wants to travel now she has no responsibilities and wants to get off cpap and supp O2. long discussion, analia given her phtn hx, need to be very careful of this and get adequate testing. she would prefer to be on cpap only for traveling. her TOSHIA is actually mild but hypoxemia quite severe. will do split night PSG - 1st part to evaluate her currently baseline hypoxemia (which may have improved if her PEs have resolved), then if needed, start cpap, then if needed, titrate in supp O2. ?? Split Night Polysomnogram on 05/08/20 (done at request of pt, as she wants to get off O2 and cpap despite last prescribed on apap 8 to 16cm with 4.5 LPM O2): 1. Diagnostic portion could not reliably rule out obstructive sleep apnea or nocturnal hypoxemia. a. Patient had low sleep efficiency of 60% and did not have any Supine sleep or any REM sleep, so the risks for obstructive sleep apnea and hypoxemia are underestimated. b. Overall AHI 0/hr, RDI 3.8/hr. c. Mean O2 90%. Lee O2 81%. 28 minutes with O2 <= 88% d. Interestingly the 28 minutes of hypoxemia was limited to one consecutive period during Right Lateral NREM sleep, which may actually be due to poor pulse oximeter placement, since patient had oxygen saturation 89 to 91% before and after this period while she was also sleeping in Right Lateral NREM sleep. Patient otherwise showed normal o xygen levels during NREM sleep in lateral and prone positions. 2. Titration portion tested CPAP 5 to 9cmH2O. a. Patient slept most of the time in prone position sleep. b. All pressures worked well as she had minimal respiratory events. c. Oxygen saturation on CPAP was improved when compared to diagnostic portion, and was 91 to 92% during Prone NREM sleep, but this dropped to 87 to 89% during long period of Prone REM sleep. d. The borderline oxygen saturation levels during Prone REM sleep suggests patient would likely have significant nocturnal hypoxemia during this period without CPAP therapy. 3. Respironics Pao View, Full Face Mask in Size Small, showed acceptable leak profile. 4. Severe Periodic Limb Movement Disorder with significant arousals seen during diagnostic portion,which was resolved when patient was on CPAP therapy. ?? 06/17/20: psg results suggests she certainly does not need 4.5 LPM O2, likely 1 to 2 LPM would be enough, but she is quite against keeping her O2 equipment for both financial and psychologic factors. she is fortunately very willing to keep using cpap for her mild TOSHIA which will also improve her oxygenation and is much more portable. will d/c O2 at her request after pt has rec'vd adequate information and making informed decision. ?? 03/16/2023: New diagnosis of myasthenia gravis since her last visit, following with neurologist??Dr. Ponce Cleary in [place]. receiving q4 weeks IV infusions for her MG.??She has received a new Dreamstation 2 CPAP??machine that is functioning well.??However, she is having some difficulty with breathing, cannot breath supine. given new dx of MG and hypoventilation that can?? be associated, will??order ??CPAP/BiPAP titration study to optimize PAP??therapy - will do with TcCO2 to r/o hypoventilation and see if cpap vs bipap is better tolerated. She is also completely off of supplemental oxygen (pt choice), so we can also eval for her O2 status. ?? DME: [place] ? Today's Assessment and Plan: Download data reviewed and discussed with the patient. She has some reduced compliance due to occasional suffocating sensation, denies that she feels it is related to the pressures or humidity. Unable to sleep in supine position due to this difficulty breathing. Possibility for myasthenia gravis related hypoventilation due to respiratory muscle weakening which I discussed with the patient. Discussed possibility proceeding with a CPAP/BiPAP titration study because of her myasthenia gravisand hypoventilation which pt is agreeable to. We discussed the differences between CPAP and BiPAP machine, and the way it may be more beneficial for her. For her BiPAP study, pt WILL need 7PM start time FAN study, cannot drive at night in the winter/inthe dark. Advise pt should not have her study immediately after infusion treatment. ?? PSG Instructions:??Please read carefully, if any questions call Dr. Agustin. Include TCO2 monitoring. Please gently explain the process/procedure as you go through the sleep study with the patient, as she is prone to anxiety. If she begins to panic before the sleep study starts, place??CPAP??on payal it may help with vocal cord dysfunction.??Low threshold to try different mask.??Before she goes to sleep, have her try CPAP 8cm H20 vs BiPAP 8/4cm H20 and ask if one is more comfortable than the other.??Can titrate up on pressures while awake for comfort. Document her preference/comments.??Startnight on CPAP 8cm H20 and increase as needed for respiratory events and/or lowoxygen up to CPAP 16cm h20. After 2 hours, place pt on BiPAP at the equivalent pressure of what worked on CPAP. Start with PS 4cm H20 and increase as needed up to PS of 8cm H20.??Try to find optimal pressure for both lateral and supine position sleep, especially Supine REM sleep. Okay for her??to spend time sleeping prone position, as this is her primary sleep position at home.??Document medications used on night of PS G.?? At end of night, ask patient if she had a clear preference between CPAP or BiPAP. Please alertDr Vamsi to read this FAN so she can get her machine before nxt apptmt. ?? Follow up: 3 months or sooner if needed. ?? Remote Scribed by??Dimple Wolfe ?? Problem List/Past Medical History Ongoing Chronic pulmonary embolism Deep venous thrombosis Family history of hypercoagulability Hypertensive disorder Hypoxemia associated with sleep TOSHIA (obstructive sleep apnea) PHT (pulmonary hypertension) Historical No qualifying data Medications What How Much When Instructions Unchanged apixaban (Eliquis 2.5 mg oral tablet) 1 tab Oral (given by mouth) 2 times a day Unchanged atorvastatin (Lipitor 40 mg oral tablet) 1 tab Oral (given by mouth) Every day Unchanged calcium carbonate (calcium carbonate 600 mg oral tablet, chewable) Unchanged diclofenac topical (Voltaren Arthritis Pain 1% topical gel) Unchanged docusate (Dulcolax Stool Softener) Unchanged ibuprofen (ibuprofen 200 mg oral capsule) 2 Capsules Oral (given by mouth) Every 4 hours as needed for as needed for pain Unchanged lisinopril (lisinopril 20 mg oral tablet) 1 tab Oral (given by mouth) Every day Unchanged mycophenolate mofetil (mycophenolate mofetil 500 mg oral tablet) 2 tab Oral (given by mouth) 2 times a day Unchanged omega-3 polyunsaturated fatty acids (Fish Oil oral capsule) 1 Capsules Oral (given by mouth) Every day Unchanged omeprazole (omeprazole 20 mg oral delayed release capsule) 1 Capsules Oral (given by mouth) Every day Unchanged pyridostigmine (pyridostigmine 60 mg oral tablet) Allergies azithromycin levoFLOXacin Social History Electronic Cigarette/Vaping Electronic Cigarette Use: Never. Tobacco Never tobacco user Tobacco Use:. Electronically Signed on 03/16/23 01:26 PM Margarette Agustin MD Reviewed by: Margarette Agustin MD * Alex Mario: PERFORM Event Display: Office Clinic Note Physician Authored Date: Print Patient Name MARCKRES, OLETA (75yo, F) ID# [id number] Appt. Date/Time 06/17/2020 09:30AM 1945 Service Dept. [facility] SLEEP Provider MARGARETTE AGUSTIN MD, BOARD CERTIFIED SLEEP PHYSICIAN Insurance Med Primary: [facility] (MEDICARE REPLACEMENT/ADVANTAGE - PPO) Insurance # : [id number] Policy/Group # : [id number] Med : [place] A (MEDICARE) Insurance # : [id number] Prescription: [facility] MEDICAID - Member is eligible. details Prescription: [employer] - Member is eligible. details Chief Complaint SLEEP CLINIC Follow-Up CPAP/BIPAP Therapy, Telehealth visit - Patient at home re-evaluate whether patient still needs cpap and supplemental oxygen, PSG results Patient's Care Team Primary Care Provider: THELMA LINDSEY MD: [address] [place] [address], , Pilot Plant Technician: ULISES HILLS MD: [address] [place] [address], , Other: [facility]: [address] [facility] [place] [address], , Patient's Pharmacies [id number] ([place]): [address] [place] [address], , Vitals 06/17/2020 09:28 am Ht: 5 ft 2 in Stated (157.48 cm) Wt: 189 lbs Stated (85.73 kg) BMI: 34.6 Allergies Reviewed Allergies AZITHROMYCIN LEVOFLOXACIN Medications Reviewed Medications Accu-Chek Lindsay Plus test strips 03/09/17 filled [employer] atorvastatin 40 mg tablet Take 1 tablet(s) every day by oral route. 01/08/18 filled [employer] Calcium 600 + D(3) 1 tab BID 12/30/17 entered [facility] Eliquis 2.5 mg tablet 1 tab BID 04/13/17 filled [employer] furosemide 40 mg tablet 1 tab daily 01/08/18 filled [employer] lisinopriL 20 mg-hydrochlorothiazide 12.5 mg tablet 1 tab daily 01/17/18 filled [employer] magnesium 400mg daily 12/30/17 entered [facility] metFORMIN 1,000 mg tablet 1 tab BID 12/09/17 filled [employer] West[place] 3 1000mg daily 12/30/17 entered [facility] omeprazole 20 mg capsule,delayed release 1 tab BID 05/11/17 filled [employer] Stool Softener 2 tab daily 12/30/17 entered [facility] Vaccines None recorded. Problems Reviewed Problems Type 2 diabetes mellitus - Onset: 12/30/2017 Hypercoagulability state - Onset: 12/30/2017 Obstructive sleep apnea syndrome Sleep related hypoxemia - Onset: 12/30/2017 Hypertensive disorder - Onset: 12/30/2017 Pulmonary hypertension - Onset: 12/30/2017 Chronic pulmonary embolism - Onset: 12/30/2017 Deep venous thrombosis - Onset: 12/30/2017 Social History Reviewed Social History [facility] General Social History List Tobacco Smoking Status: Never smoker Most Recent Tobacco Use Screenin02/24/2018 Alcohol intake: Occasional (Notes: 5 drinks a year) Caffeine intake: Occasional (Notes: decaf coffee= 1-2 cups) Occupation: retired Are you currently employed?: N Live alone or with others?: alone Hard of hearing or deaf in one or both ears?: N Language Difficulties: No Blind or serious difficulty seeing: Y (Notes: corrective lenses) Animal exposure?: Y (Notes: Dog) Surgical History Reviewed Surgical History Cholecystectomy Hysterectomy Past Medical History Notes: Titration Study[09/12/2017] Sleep Study-PSG[08/01/2017] Documents for Discussion Discussed the following documents: HISTORICAL LABS - 06/14/20 CPAP COMPLIANCE - 06/14/20 SPLIT NIGHT SLEEP STUDY - THELMA LINDSEY MD - 05/08/20 Screening Name Score Notes [place] Sleepiness 3 HPI The patient is home. The provider is home. The patient has been positively identified and has consented to a telehealth visit. Kathleen Tellez is a pleasant 75 year old woman with history of HTN, DM, hyperlipidemia, Pulmonary hypertension, DVT, PE and Mild Obstructive Sleep Apnea returns for follow-up of cpap and supplementalO2 therapy. PREVIOUS SLEEP EVALUATION: Diagnostic Polysomnogram on 08/01/17 AHI 8.1/hr RDI 12.4/hr REM AHI 24/hr REM RDI 28.6/hr Supine AHI16/hr Lee SpO2 80% 120 Minutes with SpO2 less than 88% (worse in supine, analia severe in supine REM), Arousal index 12/hr PLM index 1.1/hr PLM Arousal index 0.2/hr. NSR with PACs. Titration Polysomnogram on 09/12/17 (wt 208 lbs / bmi 39) tested cpap 5 to 11cm. Optimal pressure notfound due to absent supine REM sleep. best pressure was cpap 11cm, which resolved significant apneas, hypopneas and snoring including during L Lateral REM sleep but O2 lingered 87 to 89% on room air on all settings. Eventually supplemental O2 at 1 LPM added during NREM sleep but this failed to corrected the hypoxemia. CPAP 5cm worked for L NREM sleep. 9cm worked for Prone NREM sleep. AirFit P10 nasal pillows had high leak even with chin strap. Pao view full face mask in small had good leak profile. 12/16/17 Overnight Oximetry on Auto CPAP 6 to 13cm and 2 LPM O2 suggests residual nocturnal hypoxemia, with 1h39m at SpO2 <= 88% and JOSE 4.7/hr, latter is consistent with cpap data and suggests respiratory events are fairly well controlled but hypoxemia persists. 01/28/18 Overnight Oximetry on Auto CPAP 8 to 16cm and 4 LPM O2 showed avg O2 93% lee O2 89% High O2 98% 0 min O2<=88% JOSE 2.7/hr. 01/18/19 Overnight Oximetry on auto cpap 8 to 16cm and 3.5 LPM O2 showed SpO2 <= 88% for 1h30m, avg O2 90% lee O2 82% highest O2 97% Split Night Polysomnogram on 05/08/20 (done at request of pt, as she wants to get off O2 and cpap despite last prescribed on apap 8 to 16cm with 4.5 LPM O2): 1. Diagnostic portion could not reliably rule out obstructive sleep apnea or nocturnal hypoxemia. a. Patient had low sleep efficiency of 60% and did not have any Supine sleep or any REM sleep, so the risks for obstructive sleep apnea and hypoxemia are underestimated. b. Overall AHI 0/hr, RDI 3.8/hr. c. Mean O2 90%. Lee O2 81%. 28 minutes with O2 <= 88% d. Interestingly the 28 minutes of hypoxemia was limited to one consecutive period during Right Lateral NREM sleep, which may actually be due to poor pulse oximeter placement, since patient had oxygen saturation 89 to 91% before and after this period while she was also sleeping in Right Lateral NREM sleep. Patient otherwise showed normal o xygen levels during NREM sleep in lateral and prone positions. 2. Titration portion tested CPAP 5 to 9cmH2O. a. Patient slept most of the time in prone position sleep. b. All pressures worked well as she had minimal respiratory events. c. Oxygen saturation on CPAP was improved when compared to diagnostic portion, and was 91 to 92% during Prone NREM sleep, but this dropped to 87 to 89% during long period of Prone REM sleep. d. The borderline oxygen saturation levels during Prone REM sleep suggests patient would likely have significant nocturnal hypoxemia during this period without CPAP therapy. 3. Respironics Pao View, Full Face Mask in Size Small, showed acceptable leak profile. 4. Severe Periodic Limb Movement Disorder with significant arousals seen during diagnostic portion,which was resolved when patient was on CPAP therapy. TODAY: Previously on auto cpap 8 to 16cm and 4.5 LPM O2 via pao view small full face mask see A&P section for details ROS Additionally reports: A 10-point REVIEW OF SYSTEM was obtained and reviewed, includes CONSTITUTIONAL, EYES, NOSE, THROAT,RESPIRATORY, HEART, GASTROINTESTINAL, UROLOGIC, MUSCULOSKELETAL, PSYCHIATRY, SKIN systems. Pertinent symptoms are discussed in history, otherwise negative. Physical Exam Patient is a 75-year-old female. GENERAL: well appearing, appearing stated age, no acute distress, obese build HEENT: atraumatic skull, anicteric RESPIRATORY: quiet respiration, able to speak in full sentences without dyspnea, no accessory muscle use, SKIN: no facial skin rash, no facial skin lesions PSYCHIATRIC: well groomed, fluent speech, good insight, linear thought process, good eye contact, balanced affect NEUROLOGIC: alert, oriented, symmetric facial expression Clinical Data Reviewed: 1. [place] Sleepiness Scale: 0 out of 24(vs 1 last visit) 2. Sleep study and overnight oximetry results as above. 3. Machine Download Data: [employer]ics [employer] Auto CPAP PAP Settings: Auto CPAP 8 to 16 CmH2O Date Range: 05/15/2020 to 06/13/2020 Days with Usage >=4 hours: 97 % Avg Usage per Day Used: 7 Hours 3 Minutes Mean/Median Pressure: 8.3 cmh2O 90th-tile/95th-tile Pressure: 9.1 cmH2O Avg Time in Large Leak Daily: 0sec Average AHI: 2.9 per hour (vs 3.7 on auto cpap 6 to 13) Normal flow limitation index. Normal vibratory snore index. Daily details do not show significant periods at maximum pressure 4. Other relevant studies: (pulm htn clinic notes were requested and reviewed, including most recent one on 01/05/18) admitted Jul 2016 w/ extensive pulmonary embolism, CT suggestive of RHS. Last CT chest report 02/17/17 ???significant decrease in PE burden compared with CT scan 07/2016. Chronic pulmonary emboli now present throughout all lobes with the exception of RUL. PAH and right heartenlargement.?? Last ECHO 01/19/17: LV size nml, EF 60-65%, wall motion normal. Ventricular septum mild diastolic flattening. RV moderately dilated. Systolic function moderately reduced. PA pressure not reported. RHC 03/22/17 PA pressure 63/28. fluoro sniff given RHD elevation 08/04/17: RHD elevated, less excursion than left, but synchronous movement, no evidence of HD paralysis 12/13/17 [facility] echo: grd 1 diastolic dysfunction, normal LA diameter, RV size and function remain normal, PASP estimated 35 to 40 to be mildly elevated. IVC normal w/ normal RPV. 5. Labs 04/16/2020 Hb 12.2; Cr 0.96; Ferritin 84; CO2 27.7 Assessment / Plan This visit was performed virtually using synchronous audio-visual connection via Zoom. As such, thephysical examination is necessarily limited. The risks and benefits of the use of this alternative platform were discussed with the parent and verbal consent was obtained. My assessment and plans arebased on such examination. Further evaluation, including in-person examination, may be needed depending on the response to management or today's recommendation. I provided greater than 40 minutes in the care of this patient, more than half the time was spent in [id number] counseling. 1. Obstructive sleep apnea syndrome - Mild PSG 08/01/17 AHI 8.1/hr,REM AHI 24/hr 02 80% Jul 2017 - started auto cpap 6 to 16 + 2 LPM O2 09/28/17 - auto cpap 6 to 13 cm + 2 LPM O2 per Titration Polysomnogram results; 12/30/17- inc auto cpap 8 to 16cm + 4 LPM O2, as titration results did not find optimal pressure forREM, so will increase empirically to try to dec AHI further. inc to 4LPM O2 due to abn overnight oxresults showing 1.5+ hrs <= 88% on 2 LPM O2 and cpap. 02/24/18 - continue auto cpap 8 to 16cm which shows tx AHI reduced to 3.7/hr and she has good benefit on this, dec to 3.5 LPM O2 as overnight oximetry on 4LPM showed much higher O2 levels, confirmed with Dr Calixto/pul htn clinic that target O2 would be > 90%.. will repeat test before next follow up, sooner if needed. given she is very overwhelmed with caring for her , we can do yearly follow up, but she knows to contact me sooner if there are changes to symptoms or her other medical conditions 02/06/19: overnight oximetry on apap 8 to 16cm and 3.5 LPM O2 showed SpO2 <= 88% for 1h30m, will continue apap 8 to 16cm but increase to 4.5 LPM O2. 05/01/20: overnight oximetry ordered and pt recalls completing it and returning it but [facility] has no record of this. 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 she wants to travel now she has no responsibilities and wants to get off cpap and supp O2. long discussion, analia given her phtn hx, need to be very careful of this and get adequate testing. she would prefer to be on cpap only for traveling. her TOSHIA is actually mild but hypoxemia quite severe. will do split night PSG - 1st part to evaluate her currently baseline hypoxemia (which may have improved if her PEs have resolved), then if needed, start cpap, then if needed, titrate in supp O2. 06/17/20: psg results suggests she certainly does not need 4.5 LPM O2, likely 1 to 2 LPM would be enough, but she is quite against keeping her O2 equipment for both financial and psychologic factors. she is fortunately very willing to keep using cpap for her mild TOSHIA which will also improve her oxygenation and is much more portable. will d/c O2 at her request after pt has rec'vd adequate information and making informed decision. G47.33: Obstructive sleep apnea (adult) (pediatric) OXYGEN AND EQUIPMENT - Patient would like to discontinue supplemental oxygen. Qty: 1 Unit Refills: 0 Supplier: [facility] 2. Chronic pulmonary embolism - 02/06/19: seeing pulmonary 05/01/20: unclear if this has resolved. she's on lifelong anticoagualation. I27.82: Chronic pulmonary embolism 3. Pulmonary hypertension - moderate to severe with chronic bilateral PEs, Dr Hills agree O2 > 90% goal given this. 02/06/19: will obtain pulm records for nxt visit 06/17/20: pt states she no longer followed by pulm I27.20: Pulmonary hypertension, unspecified 4. Finding related to health insurance issues - 06/17/20: pt finds 30 dollar a month bill for her supp O2 which is part not covered by her insuranceto be quite burden, informed decision making above, and she has decided to d/c O2. she has [facility] adv plan Z59.9: Problem related to housing and economic circumstances, unspecified Patient Instructions You inquired at your last visit to have a repeat sleep study because you want to get off supplemental oxygen and you also wanted to get off cpap. We went over the results of the study: your oxygen was still too low off cpap therapy even though you didnt have a lot of apnea events. On cpap, it does show improvement as your oxygen levels were okay some times and borderline during REM sleep. I would recommend keeping cpap and supplemental oxygen, but the latter at a lower level such as 1 to 2 LPM (as opposed to 4LPM you were on). However you feel quite strongly due to financial burden that you want to be off oxygen. I think that is not unreasonable, and as long as you keep using cpap and sleep in prone (belly) position, this would be okay. We did discuss it would be a hassle to get the oxygen equipment back (requiring more sleep studies) if you did want it back. You would still like to discontinue, I will send the request to Joshua. The other observation during sleep study is your legs moved very frequently and you woke up from the leg movements while you were NOT off cpap, and this got resolved once you got placed back on it. You feel fine continuing on cpap. For now we can continue same pressure,but if needed, we can also lower this slightly as the sleep study shows the lower pressure cpap worked fine for prone sleep, which is what you usually do at home. Follow up in 12 months, sooner if needed. Discussion Notes Remember to always take precautions on drowsy driving. If you experience sleepiness while driving, find a safe area to government contracts manager and take a break. Research suggests taking a power nap (15 to 20 minutes) and/or coffee (or caffeine containing food such as dark chocolate) may be effective aides. As a lways, you should use your judgement on whether to drive at all, if you are sleep deprived or feeling sleepy. Thank you for the kind opportunity to participate in your medical care. You expressed good understanding of your diagnosis and treatment, and agreed to proceed with the plan we discussed together. Ifyou have any questions or concerns prior to your next appointment, please call Sleep Clinic. Return to Office to see MARGARETTE AGUSTIN MD, Board Certified Sleep Physician at [facility] on or around 05/18/2021 Electronically Signed on 03/12/23 01:41 PM Alex Mario Patient Care team information Care Team Personnel Name: Thelma Mercer MD Position: No Access Member Role: Primary Care Physician Address: Address: [address] [address]- [place]
--- OUTSIDE RECORDS SUMMARY | 2023-04-14 22:36 | XMS_ITS | Continuity of Care Document ---
Author Name Unknown Organization [facility] or [facility] Address [address] [place] [address] Care Team Providers Care Applications Tester Name Role Phone Narinder [facility] Primary Care Physici an Encounter [facility] [id number] Date(s): 03/16/23 - 03/16/23 [facility] [address] [place] [address] Discharge Disposition: Home Allergies, Adverse Reactions, Alerts Substance Reaction Severity [...] Active Hypoxemia associated with sleep Confirmed Active Social History Social History Type Response Tobacco Never tobacco user T obacco Use:. Sex Female Patient Care team information Care Team Personnel Name: Jenny Mercer MD Position: No Access Member Role: Primary Care Physician Address: Address: [address] [address]- [place]
--- OUTSIDE RECORDS SUMMARY | 2023-04-14 22:36 | XMS_ITS | Continuity of Care Document ---
Author Name Unknown Organization [facility] Address [address] [place] [address] Care Team Providers Care Sheet Metal Apprentice Name Role Phone Narinder [facility] Primary [facility] Physici an [facility] Date(s): 03/27/23 - 03/27/[address] [address] Discharge Disposition: Home or Self Care Attending Physician: Elmer Agustin MD Admitting Physician: Elmer Agustin MD Referring Physician: Elmer Agustin MD Allergies, Adverse Reactions, Alerts Substance [...] Member Role: Primary Care Physician Address: Address: [address] [address]- [place]
--- OUTSIDE RECORDS SUMMARY | 2023-04-14 22:36 | XMS_ITS | CCD ---
Author Name Unknown Address [address] [place] [address] [phone] Organization Unknown Address [address] [place] [address] [phone] Care Team Providers Care Weight Trainer Name Role Phone AMAN GRIMES Attending Physician [phone] AMAN GRIMES Rounding (Secondary) Physician [phone] Vital Signs Unknown or Not Available. Allergies Allergy Code Allergy Type Reaction Status SULFA (sulfonamide) 0 Drug allergy Nausea; Vomiti ng Active LEVOFLOXACIN 85059 Drug allergy NAUSEA/VOMITING,DIARR HEA,ABDOMINAL PAIN Active Procedures Unknown or Not Available. History of Immunizations Unknown or Not Available. Problems Problem Code Start Date Resolved Date Status Myasthenia gravis with (acut e) exacerbation 94774255007931 Active Nausea with vomiting 36245998 Acti ve Weakness 52015071 Active Type 2 diabetes 93088358 Active Hypertension 43405168 Active Personal history of PE 484630273 12/07/2021 Re solved Diabetes 55902465 12/07/2021 Resolved Hypertension 64084981 12/07/2021 Resolved Myasthenia gravis 26980534 12/07/2021 Resolve d Results Unknown or Not Available. Active Medications Medication Code Dose Units Frequency Route Modificatio n Start Date/Time Atorvastatin Calcium 40MG Oral Tablet 654437 1 TABLET BEDTIME ORAL 12/09/19 16:46 Prescription Detail TAKE 1 TABLET ORAL BEDTIME Eliquis 2.5MG Oral Tablet 10367212989 2.5 MILLIGRAMS TWICE A DAY ORAL 16:46 Prescription Detail TAKE 2.5 MILLIGRAMS ORAL TWICE A DAY Lisinopril 20MG Oral Tablet 935116 1 TABLET BEDTIME ORAL 12/09/19 16:46 Prescription Detail TAKE 1 TABLET ORAL BEDTIME metFORMIN HCl 500MG Oral Tablet 952970 500 MILLIGRAMS DAILY WITH FOOD ORAL 12/08/2021 16:46 Prescription Detail TAKE 500 MILLIGRAMS ORAL DAILY WITH FOOD Mycophenolate Mofetil 500MG Oral Tablet 788344 2 TABLET TWICE A DAY ORAL 2021 16:46 Prescription Detail TAKE 2 TABLET ORAL TWICE A DAY Omeprazole 20MG Oral Capsule, Delayed Release 876315 1 TABLET DAILY ORAL 11/11 16:46 Prescription Detail TAKE 1 TABLET ORAL DAILY Pyridostigmine Allen 60MG Oral Tablet 343946 2 TABLET THREE TIMES A DAY ORAL 12/08/2021 16:46 Prescription Detail TAKE 2 TABLET ORAL THREE TIMES A DAY Medications Administered During Visit Unknown or Not Available. Encounters Encounter Diagnosis Diagnosis Code Start Date Postmenopausal atrophic vaginitis N952 10/20/2021 Social History Smoking Status Code Start Date End Date Never smoker [id number] Patient Decision Aids Unknown or Not Available. Discharge Instructions You were admitted to [facility] on 10/20/2021 10:52 with a principal diagnosis of Postmenopausal atrophic vaginitis You were discharged from [facility] on 10/20/2021 10:53 Should you have any questions prior to [...]
--- OUTSIDE RECORDS SUMMARY | 2023-04-14 22:36 | XMS_ITS | CCD ---
Author Name Unknown Address [address] [place] [address] [phone] Organization Unknown Address [address] [place] [address] [phone] Care Team Providers Care Plant Associate Name Role Phone AMAN GRIMES Attending Physician [phone] AMAN GRIMES Rounding (Secondary) Physician [phone] Vital Signs Unknown or Not Available. Allergies Allergy Code Allergy Type Reaction Status SULFA (sulfonamide) 0 Drug allergy Nausea; Vomiti ng Active LEVOFLOXACIN 50630 Drug allergy NAUSEA/VOMITING,DIARR HEA,ABDOMINAL PAIN Active Procedures Unknown or Not Available. History of Immunizations Unknown or Not Available. Problems Problem Code Start Date Resolved Date Status Myasthenia gravis with (acut e) exacerbation 26754906293328 Active Nausea with vomiting 75018457 Acti ve Weakness 22226447 Active Type 2 diabetes 31070442 Active Hypertension 04426626 Active Personal history of PE 072425037 12/07/2021 Re solved Diabetes 32833632 12/07/2021 Resolved Hypertension 31369172 12/07/2021 Resolved Myasthenia gravis 64161781 12/07/2021 Resolve d Results Unknown or Not Available. Active Medications Medication Code Dose Units Frequency Route Modificatio n Start Date/Time Atorvastatin Calcium 40MG Oral Tablet 068524 1 TABLET BEDTIME ORAL 12/09/19 16:46 Prescription Detail TAKE 1 TABLET ORAL BEDTIME Eliquis 2.5MG Oral Tablet 76072076266 2.5 MILLIGRAMS TWICE A DAY ORAL 16:46 Prescription Detail TAKE 2.5 MILLIGRAMS ORAL TWICE A DAY Lisinopril 20MG Oral Tablet 734826 1 TABLET BEDTIME ORAL 12/09/19 16:46 Prescription Detail TAKE 1 TABLET ORAL BEDTIME metFORMIN HCl 500MG Oral Tablet 537457 500 MILLIGRAMS DAILY WITH FOOD ORAL 12/08/2021 16:46 Prescription Detail TAKE 500 MILLIGRAMS ORAL DAILY WITH FOOD Mycophenolate Mofetil 500MG Oral Tablet 724530 2 TABLET TWICE A DAY ORAL 2021 16:46 Prescription Detail TAKE 2 TABLET ORAL TWICE A DAY Omeprazole 20MG Oral Capsule, Delayed Release 058551 1 TABLET DAILY ORAL 11/11 16:46 Prescription Detail TAKE 1 TABLET ORAL DAILY Pyridostigmine [place] 60MG Oral Tablet 088290 2 TABLET THREE TIMES A DAY ORAL 12/08/2021 16:46 Prescription Detail TAKE 2 TABLET ORAL THREE TIMES A DAY Medications Administered During Visit Unknown or Not Available. Encounters Encounter Diagnosis Diagnosis Code Start Date Atrophic vaginitis 28108402 09/19/2021 Social History Smoking Status Code Start Date End Date Never smoker 351960484 Patient Decision Aids Unknown or Not Available. Discharge Instructions You were admitted to [facility] on 09/19/2021 10:24 with a principal diagnosis of Postmenopausal atrophic vaginitis You were discharged from [facility] on 09/19/2021 10:26 Should you have any questions prior to [...]
--- OUTSIDE RECORDS SUMMARY | 2023-04-14 22:37 | XMS_ITS | CCD ---
Author Name Unknown Address [address] [place] [address] [phone] Organization Unknown Address [address] [place] [address] [phone] Care Team Providers Care Home Visits Nurse Name Role Phone RAYMUNDO APPLEMatthew Cisneros Attending Physician [phone] Vital Signs Unknown or Not Available. Allergies Allergy Code Allergy Type Reaction Status SULFA (sulfonamide) 0 Drug allergy Nausea; Vomiti ng Active LEVOFLOXACIN 25344 Drug allergy NAUSEA/VOMITING,DIARR HEA,ABDOMINAL PAIN Active Procedures Unknown or Not Available. History of Immunizations Unknown or Not Available. Problems Problem Code Start Date Resolved Date Status Myasthenia gravis with (acut e) exacerbation 01330619620438 Active Nausea with vomiting 76556326 Acti ve Weakness 00270672 Active Type 2 diabetes 61859453 Active Hypertension 23423631 Active Personal history of PE 818131147 12/07/2021 Re solved Diabetes 57089428 12/07/2021 Resolved Hypertension 77806780 12/07/2021 Resolved Myasthenia gravis 59104253 12/07/2021 Resolve d Results Unknown or Not Available. Active Medications Medication Code Dose Units Frequency Route Modificatio n Start Date/Time Atorvastatin Calcium 40MG Oral Tablet 861253 1 TABLET BEDTIME ORAL 12/09/19 16:46 Prescription Detail TAKE 1 TABLET ORAL BEDTIME Eliquis 2.5MG Oral Tablet 58790107703 2.5 MILLIGRAMS TWICE A DAY ORAL 16:46 Prescription Detail TAKE 2.5 MILLIGRAMS ORAL TWICE A DAY Lisinopril 20MG Oral Tablet 672522 1 TABLET BEDTIME ORAL 12/09/19 16:46 Prescription Detail TAKE 1 TABLET ORAL BEDTIME metFORMIN HCl 500MG Oral Tablet 624965 500 MILLIGRAMS DAILY WITH FOOD ORAL 12/08/2021 16:46 Prescription Detail TAKE 500 MILLIGRAMS ORAL DAILY WITH FOOD Mycophenolate Mofetil 500MG Oral Tablet 883304 2 TABLET TWICE A DAY ORAL 2021 16:46 Prescription Detail TAKE 2 TABLET ORAL TWICE A DAY Omeprazole 20MG Oral Capsule, Delayed Release 629035 1 TABLET DAILY ORAL 11/11 16:46 Prescription Detail TAKE 1 TABLET ORAL DAILY Pyridostigmine [place] 60MG Oral Tablet 451973 2 TABLET THREE TIMES A DAY ORAL 12/08/2021 16:46 Prescription Detail TAKE 2 TABLET ORAL THREE TIMES A DAY Medications Administered During Visit Unknown or Not Available. Encounters Encounter Diagnosis Diagnosis Code Start Date Myasthenia gravis with (acute) exacerbation G700 1 12/07/2021 Social History Unknown or Not Available. Patient Decision Aids Unknown or Not Available. Discharge Instructions You were admitted to [facility] on 12/07/2021 12:13 with a principal diagnosis of Myasthenia gravis with (acute) exacerbation You were discharged from [facility] on 12/07/2021 15:58 Should you have any questions prior to [...]
--- OUTSIDE RECORDS SUMMARY | 2023-04-14 22:37 | XMS_ITS | CCD ---
Author Name Unknown Address [address] [place] [address] [phone] Organization Unknown Address [address] [place] [address] [phone] Care Team Providers Care Production Control Technologist Name Role Phone NIKIA LAWLER Attending Physician [phone] Vital Signs Unknown or Not Available. Allergies Allergy Code Allergy Type Reaction Status SULFA (sulfonamide) 0 Drug allergy Nausea; Vomiti ng Active LEVOFLOXACIN 50742 Drug allergy NAUSEA/VOMITING,DIARR HEA,ABDOMINAL PAIN Active Procedures Unknown or Not Available. History of Immunizations Unknown or Not Available. Problems Problem Code Start Date Resolved Date Status Myasthenia gravis with (acut e) exacerbation 30487210150985 Active Nausea with vomiting 68263933 Acti ve Weakness 91479067 Active Type 2 diabetes 00835883 Active Hypertension 37498224 Active Personal history of PE 751238058 12/07/2021 Re solved Diabetes 98198029 12/07/2021 Resolved Hypertension 30828012 12/07/2021 Resolved Myasthenia gravis 72570069 12/07/2021 Resolve d Results COMPREHENSIVE METABOLIC PANE L (CMP) - Collect Date/Time: 07/02/2021 12:06 Test Name Code Test Result Test Units Test Ref Rang e GLUCOSE 2345-7 117 mg/dL L=70 H=116 BUN 3094-0 23 mg/dL L=6 H=25 CREATININE 2160-0 1.02 mg/dL L=0.51 H=0.95 SODIUM SERUM 2951-2 140 mmol/L L=136 H=145 POTASSIUM SERUM 2823-3 5.3 mmol/L L=3.4 H=5 .2 CHLORIDE SERUM 2075-0 108 mmol/L L=96 H=110 CARBON DIOXIDE (CO2) 2028-9 25 mmol/L L=22 H=34 ANION GAP 77898-8 7.1 mmol/L CALCIUM SERUM 71359-5 9.2 mg/dL L=8.2 H=10. 2 BILIRUBIN TOTAL 1975-2 0.3 mg/dL L=0.0 H=1 .3 ALK. PHOS. 6768-6 66 U/L L=46 H=116 SGOT (AST) 1920-8 29 U/L L=15 H=37 SGPT (ALT) 1742-6 34 U/L L=12 H=78 TOTAL PROTEIN 2885-2 7.5 gm/dL L=6.0 H=8.0 ALBUMIN 1751-7 3.3 gm/dL L=3.4 H=5.0 AGE 76 years eGFR (non-Afr.Amer.) 51020-1 53 mL/min eGFR (Afr-Nigerian) 47025-4 64 mL/min HEMOGRAM + PLATELET WO DIFF - Collect Date/Time: 07/02/2021 12:06 Test Name Code Test Result Test Units Test Ref Rang e WBC 6690-2 6.60 th/cmm L=5.00 H=10.00 NRBC % 86590-7 0.0 % L=0.0 H=0.0 NRBC abs count 29372-6 0.0 mil/cmm L=0.0 H=0. 0 RBC 789-8 3.43 mil/cmm L=3.90 H=5.40 HEMOGLOBIN 718-7 10.8 gm/dL L=12.0 H=16.0 HEMATOCRIT 4544-3 34 % L=37 H=47 MCV 787-2 99 fL L=82 H=92 MCH 785-6 31.5 pg L=27.0 H=31.0 MCHC 786-4 31.7 % L=32.0 H=36.0 RDW-SD 788-0 55.6 fL L=39.0 H=49.0 PLATELET COUNT 777-3 393 th/cmm L=150 H=45 0 Active Medications Medication Code Dose Units Frequency Route Modificatio n Start Date/Time Atorvastatin Calcium 40MG Oral Tablet 664264 1 TABLET BEDTIME ORAL 12/09/19 16:46 Prescription Detail TAKE 1 TABLET ORAL BEDTIME Eliquis 2.5MG Oral Tablet 75849704783 2.5 MILLIGRAMS TWICE A DAY ORAL 16:46 Prescription Detail TAKE 2.5 MILLIGRAMS ORAL TWICE A DAY Lisinopril 20MG Oral Tablet 484686 1 TABLET BEDTIME ORAL 12/09/19 16:46 Prescription Detail TAKE 1 TABLET ORAL BEDTIME metFORMIN HCl 500MG Oral Tablet 144038 500 MILLIGRAMS DAILY WITH FOOD ORAL 12/08/2021 16:46 Prescription Detail TAKE 500 MILLIGRAMS ORAL DAILY WITH FOOD Mycophenolate Mofetil 500MG Oral Tablet 988055 2 TABLET TWICE A DAY ORAL 2021 16:46 Prescription Detail TAKE 2 TABLET ORAL TWICE A DAY Omeprazole 20MG Oral Capsule, Delayed Release 973288 1 TABLET DAILY ORAL 11/11 16:46 Prescription Detail TAKE 1 TABLET ORAL DAILY Pyridostigmine [place] 60MG Oral Tablet 318419 2 TABLET THREE TIMES A DAY ORAL 12/08/2021 16:46 Prescription Detail TAKE 2 TABLET ORAL THREE TIMES A DAY Medications Administered During Visit Unknown or Not Available. Encounters Encounter Diagnosis Diagnosis Code Start Date Myasthenia gravis without exacerbation 518207199 05903 07/02/2021 Social History Smoking Status Code Start Date End Date Never smoker 792737506 Patient Decision Aids Unknown or Not Available. Discharge Instructions You were admitted to [facility] on 07/02/2021 11:53 with a principal diagnosis of Myasthenia gravis without (acute) exacerbation You had the following tests done:COMPREHENSIVE METABOLIC PANEL (CMP)HEMOGRAM + PLATELET WO DIFF You were discharged from [facility] on 07/02/2021 11:53 Should you [...]
--- OUTSIDE RECORDS SUMMARY | 2023-04-14 22:37 | XMS_ITS | CCD ---
Author Name Unknown Address [address] [place] [address] [phone] Organization Unknown Address [address] [place] [address] [id number] Care Team Providers Care Shingle Bolt Cutter Name Role Phone SHARON MOHAN MD Attending Physician [phone] JESSE KIRKPATRICK MD Er Physician [phone] Vital Signs Unknown or Not Available. Allergies Allergy Code Allergy Type Reaction Status SULFA (sulfonamide) 0 Drug allergy Nausea; Vomiti ng Active LEVOFLOXACIN 60928 Drug allergy NAUSEA/VOMITING,DIARR HEA,ABDOMINAL PAIN Active Procedures Unknown or Not Available. History of Immunizations Unknown or Not Available. Problems Problem Code Start Date Resolved Date Status Myasthenia gravis with (acut e) exacerbation [id number] Active Nausea with vomiting 51797038 Acti ve Weakness 22054475 Active Type 2 diabetes 33311262 Active Hypertension 84296955 Active Personal history of PE 453459724 12/07/2021 Re solved Diabetes 93802608 12/07/2021 Resolved Hypertension 96482388 12/07/2021 Resolved Myasthenia gravis 95216210 12/07/2021 Resolve d Results BNP (PRO-B NATRIURETIC PEPTI DE) - Collect Date/Time: 12/21/2020 16:32 Test Name Code Test Result Test Units Test Ref Rang e NT-proBNP 93057-6 185.0 pg/mL L=0.0 H=125 COMPREHENSIVE METABOLIC PANE L (CMP) - Collect Date/Time: 12/21/2020 16:32 Test Name Code Test Result Test Units Test Ref Rang e GLUCOSE 2345-7 121 mg/dL L=70 H=116 BUN 3094-0 17 mg/dL L=6 H=25 CREATININE 2160-0 1.03 mg/dL L=0.51 H=0.95 SODIUM SERUM 2951-2 142 mmol/L L=136 H=145 POTASSIUM SERUM 2823-3 3.7 mmol/L L=3.4 H=5 .2 CHLORIDE SERUM 2075-0 107 mmol/L L=96 H=110 CARBON DIOXIDE (CO2) 2028-9 24 mmol/L L=22 H=34 ANION GAP 39734-8 10.9 mmol/L CALCIUM SERUM 41484-1 8.8 mg/dL L=8.2 H=10. 2 BILIRUBIN TOTAL 1975-2 0.3 mg/dL L=0.0 H=1 .3 ALK. PHOS. 6768-6 65 U/L L=46 H=116 SGOT (AST) 1920-8 29 U/L L=15 H=37 SGPT (ALT) 1742-6 41 U/L L=12 H=78 TOTAL PROTEIN 2885-2 6.9 gm/dL L=6.0 H=8.0 ALBUMIN 1751-7 3.4 gm/dL L=3.4 H=5.0 AGE 75 years eGFR (non-Afr.Amer.) 36091-5 52 mL/min eGFR (Afr-Norwegian) 43774-1 63 mL/min GLUCOSE FINGER/HEEL CAPILLAR Y - Collect Date/Time: 12/22/2020 00:52 Test Name Code Test Result Test Units Test Ref Rang e GLUCOSE CAP 124 mg/dL L=70 H=116 TROPONIN-I ADM. - Collect Da te/Time: 12/21/2020 16:32 Test Name Code Test Result Test Units Test Ref Rang e TROPONIN-I 77607-3 <0.017 ng/mL L=0.000 H=0.06 0 CBC W/ DIFFERENTIAL - Collec t Date/Time: 12/21/2020 16:32 Test Name Code Test Result Test Units Test Ref Rang e WBC 6690-2 9.40 th/cmm L=5.00 H=10.00 NEUT % 63.6 % L=40.0 H=80.0 LYMPH % 26.5 % L=10.0 H=50.0 MONO % 29410-3 5.6 % L=2.0 H=12.0 EOS % 3.3 % L=0.0 H=8.0 BASO % 0.6 % L=0.0 H=3.0 IG % 2514-8 0.4 % L=0.0 H=1.1 NRBC % 72319-7 0.0 % L=0.0 H=0.0 NEUT abs count 751-8 6.0 th/cmm L=1.6 H=8. 4 LYMPH abs count 731-0 2.5 th/cmm L=1.5 H=4 .0 MONO abs count 742-7 0.5 th/cmm L=0.2 H=1. 0 EOS abs count 711-2 0.3 th/cmm L=0.0 H=0.5 BASO abs count 704-7 0.1 th/cmm L=0.0 H=0. 2 IG abs count 40606-2 0.0 th/cmm L=0.0 H=0.1 NRBC abs count 02655-5 0.0 mil/cmm L=0.0 H=0. 0 RBC 789-8 3.99 mil/cmm L=3.90 H=5.40 HEMOGLOBIN 718-7 12.6 gm/dL L=12.0 H=16.0 HEMATOCRIT 4544-3 39 % L=37 H=47 MCV 787-2 99 fL L=82 H=92 MCH 785-6 31.6 pg L=27.0 H=31.0 MCHC 786-4 32.0 % L=32.0 H=36.0 RDW-SD 788-0 55.8 fL L=39.0 H=49.0 PLATELET COUNT 777-3 354 th/cmm L=150 H=45 0 PT PROTHROMBIN TIME - Colle t Date/Time: 12/21/2020 16:32 Test Name Code Test Result Test Units Test Ref Rang e PROTIME 5902-2 9.6 seconds L=9.3 H=11.4 INR 05986-0 0.94 L=2.00 H=3.00 PTT PARTIAL THROMBOPLASTIN T [place] - Collect Date/Time: 12/21/2020 16:32 Test Name Code Test Result Test Units Test Ref Rang e PTT 19006-1 22 seconds L=24 H=32 Active Medications Medication Code Dose Units Frequency Route Modificatio n Start Date/Time Atorvastatin Calcium 40MG Oral Tablet 129333 1 TABLET BEDTIME ORAL 05/30/20 22 16:46 Prescription Detail TAKE 1 TABLET ORAL BEDTIME Eliquis 2.5MG Oral Tablet 60481195410 2.5 MILLIGRAMS TWICE A DAY ORAL 16:46 Prescription Detail TAKE 2.5 MILLIGRAMS ORAL TWICE A DAY Lisinopril 20MG Oral Tablet 945345 1 TABLET BEDTIME ORAL 12/09/19 16:46 Prescription Detail TAKE 1 TABLET ORAL BEDTIME metFORMIN HCl 500MG Oral Tablet 363926 500 MILLIGRAMS DAILY WITH FOOD ORAL 12/08/2021 16:46 Prescription Detail TAKE 500 MILLIGRAMS ORAL DAILY WITH FOOD Mycophenolate Mofetil 500MG Oral Tablet 662231 2 TABLET TWICE A DAY ORAL 2021 16:46 Prescription Detail TAKE 2 TABLET ORAL TWICE A DAY Omeprazole 20MG Oral Capsule, Delayed Release 057956 1 TABLET DAILY ORAL 11/11 16:46 Prescription Detail TAKE 1 TABLET ORAL DAILY Pyridostigmine [place] 60MG Oral Tablet 950081 2 TABLET THREE TIMES A DAY ORAL 12/08/2021 16:46 Prescription Detail TAKE 2 TABLET ORAL THREE TIMES A DAY Medications Administered During Visit Unknown or Not Available. Encounters Encounter Diagnosis Diagnosis Code Start Date Myasthenia gravis with (acute) exacerbation G700 1 12/21/2020 Social History Smoking Status Code Start Date End Date Never smoker [id number] Patient Decision Aids Unknown or Not Available. Discharge Instructions You were admitted to [facility] on 12/21/2020 18:19 with a principal diagnosis of Myasthenia gravis with (acute) exacerbation You had the following tests done:GLUCOSE FINGER/HEEL CAPILLARYBNP (PRO-B NATRIURETIC PEPTIDE)CBC W/ DIFFERENTIALCOMPREHENSIVE METABOLIC PANEL (CMP)PT PROTHROMBIN TIMEPTT PARTIAL THROMBOPLASTIN TIMETROPONIN-I ADM. You were discharged from [facility] on 12/22/2020 01:59 Should you have any [...]
--- OUTSIDE RECORDS SUMMARY | 2023-04-14 22:37 | XMS_ITS | CCD ---
Author Name Unknown Address [address] [place] [address] [phone] Organization Unknown Address [address] [place] [address] [phone] Care Team Providers Care Flight Crew Scheduler Name Role Phone FABIOLA CHARLES Attending Physician [phone] Vital Signs Unknown or Not Available. Allergies Allergy Code Allergy Type Reaction Status SULFA (sulfonamide) 0 Drug allergy Nausea; Vomiti ng Active LEVOFLOXACIN 07374 Drug allergy NAUSEA/VOMITING,DIARR HEA,ABDOMINAL PAIN Active Procedures Unknown or Not Available. History of Immunizations Unknown or Not Available. Problems Problem Code Start Date Resolved Date Status Myasthenia gravis with (acut e) exacerbation 23448603538884 Active Nausea with vomiting 92115705 Acti ve Weakness 56461332 Active Type 2 diabetes 45777045 Active Hypertension 66212768 Active Personal history of PE 397134713 12/07/2021 Re solved Diabetes 05441832 12/07/2021 Resolved Hypertension 45256553 12/07/2021 Resolved Myasthenia gravis 28166779 12/07/2021 Resolve d Results Unknown or Not Available. Active Medications Medication Code Dose Units Frequency Route Modificatio n Start Date/Time Atorvastatin Calcium 40MG Oral Tablet 518389 1 TABLET BEDTIME ORAL 12/09/19 16:46 Prescription Detail TAKE 1 TABLET ORAL BEDTIME Eliquis 2.5MG Oral Tablet 20188546117 2.5 MILLIGRAMS TWICE A DAY ORAL 16:46 Prescription Detail TAKE 2.5 MILLIGRAMS ORAL TWICE A DAY Lisinopril 20MG Oral Tablet 585573 1 TABLET BEDTIME ORAL 12/09/19 16:46 Prescription Detail TAKE 1 TABLET ORAL BEDTIME metFORMIN HCl 500MG Oral Tablet 244895 500 MILLIGRAMS DAILY WITH FOOD ORAL 12/08/2021 16:46 Prescription Detail TAKE 500 MILLIGRAMS ORAL DAILY WITH FOOD Mycophenolate Mofetil 500MG Oral Tablet 305165 2 TABLET TWICE A DAY ORAL 2021 16:46 Prescription Detail TAKE 2 TABLET ORAL TWICE A DAY Omeprazole 20MG Oral Capsule, Delayed Release 610336 1 TABLET DAILY ORAL 11/11 16:46 Prescription Detail TAKE 1 TABLET ORAL DAILY Pyridostigmine [place] 60MG Oral Tablet 666202 2 TABLET THREE TIMES A DAY ORAL 12/08/2021 16:46 Prescription Detail TAKE 2 TABLET ORAL THREE TIMES A DAY Medications Administered During Visit Unknown or Not Available. Encounters Encounter Diagnosis Diagnosis Code Start Date Myasthenia gravis with (acute) exacerbation G700 1 12/07/2021 Social History Smoking Status Code Start Date End Date Never smoker [id number] Patient Decision Aids Unknown or Not Available. Discharge Instructions You were admitted to [facility] on 12/07/2021 00:28 with a principal diagnosis of Myasthenia gravis with (acute) exacerbation You were discharged from [facility] on 12/08/2021 00:28 Should you have any questions prior to [...]
--- OUTSIDE RECORDS SUMMARY | 2023-04-14 22:37 | XMS_ITS | CCD ---
Author Name Unknown Address [address] [place] [address] [id number] Organization Unknown Address [address] [place] [address] [id number] Care Team Providers Care Shape Brick Molder Name Role Phone AMAN GRIMES Attending Physician [phone] AMAN GRIMES Rounding (Secondary) Physician [phone] Vital Signs Unknown or Not Available. Allergies Allergy Code Allergy Type Reaction Status SULFA (sulfonamide) 0 Drug allergy Nausea; Vomiti ng Active LEVOFLOXACIN 12983 Drug allergy NAUSEA/VOMITING,DIARR HEA,ABDOMINAL PAIN Active Procedures Unknown or Not Available. History of Immunizations Unknown or Not Available. Problems Problem Code Start Date Resolved Date Status Myasthenia gravis with (acut e) exacerbation [id number] Active Nausea with vomiting 88761612 Acti ve Weakness 66684917 Active Type 2 diabetes 44242802 Active Hypertension 43124897 Active Personal history of PE 577786918 12/07/2021 Re solved Diabetes 48623793 12/07/2021 Resolved Hypertension 75199318 12/07/2021 Resolved Myasthenia gravis 29037070 12/07/2021 Resolve d Results Unknown or Not Available. Active Medications Medication Code Dose Units Frequency Route Modificatio n Start Date/Time Atorvastatin Calcium 40MG Oral Tablet 155262 1 TABLET BEDTIME ORAL 12/09/19 16:46 Prescription Detail TAKE 1 TABLET ORAL BEDTIME Eliquis 2.5MG Oral Tablet 17329704629 2.5 MILLIGRAMS TWICE A DAY ORAL 16:46 Prescription Detail TAKE 2.5 MILLIGRAMS ORAL TWICE A DAY Lisinopril 20MG Oral Tablet 910857 1 TABLET BEDTIME ORAL 12/09/19 16:46 Prescription Detail TAKE 1 TABLET ORAL BEDTIME metFORMIN HCl 500MG Oral Tablet 226917 500 MILLIGRAMS DAILY WITH FOOD ORAL 12/08/2021 16:46 Prescription Detail TAKE 500 MILLIGRAMS ORAL DAILY WITH FOOD Mycophenolate Mofetil 500MG Oral Tablet 452642 2 TABLET TWICE A DAY ORAL 2021 16:46 Prescription Detail TAKE 2 TABLET ORAL TWICE A DAY Omeprazole 20MG Oral Capsule, Delayed Release 324671 1 TABLET DAILY ORAL 11/11 16:46 Prescription Detail TAKE 1 TABLET ORAL DAILY Pyridostigmine [place] 60MG Oral Tablet 679627 2 TABLET THREE TIMES A DAY ORAL 12/08/2021 16:46 Prescription Detail TAKE 2 TABLET ORAL THREE TIMES A DAY Medications Administered During Visit Unknown or Not Available. Encounters Encounter Diagnosis Diagnosis Code Start Date Postmenopausal atrophic vaginitis N952 08/22/2021 Social History Smoking Status Code Start Date End Date Never smoker [id number] Patient Decision Aids Unknown or Not Available. Discharge Instructions You were admitted to [facility] on 08/22/2021 10:38 with a principal diagnosis of Postmenopausal atrophic vaginitis You were discharged from [facility] on 08/22/2021 10:40 Should you have any questions prior to [...]
[2023-04-14 22:45] LABS: HCT 29.2 % (36.0-46.0); HGB 8.6 g/dL (11.2-15.7); MCH 28.6 pg (27.0-33.0); MCHC 29.5 % (32.0-36.0); MCV 97 fL (80-95); MPV 11.1 fL (8.0-11.0); Platelet Count 358 10^3/uL (130-400); RBC 3.01 10^6/uL (3.93-5.22); RDW-SD 56.3 fL; WBC 6.21 10^3/uL (4.4-10.8)
[2023-04-14 23:04] LABS: NT-proBNP 304 pg/mL (<300)
== END 2023-04-14 22:34 | disposition home or self-care (01) ==
LOC: NCHCN 22:33
PROVIDERS: PCP Family Medicine; Visit Provider Family Medicine
DX: R06.09 Other forms of dyspnea (principal); D53.9 Nutritional anemia, unspecified
CPT/HCPCS: 85027; 83880

== ENCOUNTER 2023-07-09 16:09 | Outpatient (REF) | payer MEDICARE, SELFPAY ==
[2023-07-09 21:27] LABS: Ferritin 15 ng/mL (8-252)
[2023-07-09 21:31] LABS: Folate > 20.0 ng/mL (8.6-20.0)
== END 2023-07-09 16:10 | disposition home or self-care (01) ==
LOC: NCHCN 16:09
PROVIDERS: PCP Family Medicine; Visit Provider Family Medicine
DX: D64.9 Anemia, unspecified (principal)
CPT/HCPCS: 85027; 82728; 82746

== ENCOUNTER 2024-02-14 18:38 | Outpatient (REF) | payer MEDICARE, SELFPAY ==
[2024-02-14 21:53] LABS: COMMENT (LAB VIEW ONLY) 101.24 mg/dL; Microalb ug/mg Crea 24.6 ug/mg Cr
== END 2024-02-14 18:39 | disposition home or self-care (01) ==
LOC: NCHCN 18:38
PROVIDERS: PCP Family Medicine; Visit Provider Family Medicine
DX: E11.9 Type 2 diabetes mellitus without complications (principal)
CPT/HCPCS: 82043; 82570